=== PATIENT | male | born 1950 | race Caucasian/White ===

== ENCOUNTER 2019-03-29 20:10 | Inpatient (IN) | payer MEDICARE, OTHER ==
[~2019-03-29] VITALS: Ht 180.3 cm; Wt 93.4 kg
--- OUTSIDE RECORDS SUMMARY | ~2019-03-29 | XMS | Encounter Summary ---
Demographics + + + | Address | [address] | | | [place] [address] | + + + | Home Phone | | + + + | Preferred Language | Unknown | + + + | Marital Status | | + + + | Orthodox Affiliation | Unknown | + + + | Race | White | + + + | Ethnic Group | Not or | + + + Author + + + | Author | [facility] | + + + | Organization | [facility] | + + + | Address | Unknown | + + + | Phone | Unavailable | + + + Support + + + + + | Name | Relationship | Address | Phone | + + + + + | Ember Baca | ECON | [address] | | | | | [place] | | | | | [address] | | + + + + + Care Team Providers + +------+ + | Care Clothing Room Supervisor Name | Role | Phone | + +------+ + PCP | Unavailable | + +------+ + Encounter Details +--------+ + + + + | Date | Type | Department | Care Team | Description | +--------+ + + + + | 01/21/ | ED Progress | [facility] | Report, Emergency | ED Progress Note | | 2000 | | MEDICINE | Services | | | | Note-Transc | | | | | | ribed | | | | +--------+ + + + + Social History + +-------+ +--------+------+ | Tobacco Use | Types | Packs/Day | Years | Date | | | | | Used | | + +-------+ +--------+------+ | Never Assessed | | | | | + +-------+ +--------+------+ + + + | Sex Assigned at | Date Recorded | | | | + + + | Not on file | | + + + + + + + | Job Start Date | Occupation | Industry | + + + + | Not on file | Not on file | Not on file | + + + + + + + + | Travel History | Travel Start | Travel End | + + + + + + | No recent travel history available. | + + documented as of this encounter Plan of Treatment Not on filedocumented as of this encounter Visit Diagnoses Not on filedocumented in this encounter"
--- OUTSIDE RECORDS SUMMARY | ~2019-03-29 | XMS | Encounter Summary ---
Demographics + + + | Address | [address] | | | [place] [address] | + + + | Home Phone | | + + + | Preferred Language | Unknown | + + + | Marital Status | | + + + | Latter-Day Affiliation | Unknown | + + + | Race | White | + + + | Ethnic Group | Not or | + + + Author + + + | Author | [facility] | + + + | Organization | [facility] | + + + | Address | Unknown | + + + | Phone | Unavailable | + + + Support + + + + + | Name | Relationship | Address | Phone | + + + + + | Ember Baca | ECON | [address] | | | | | [place] | | | | | [address] | | + + + + + Care Team Providers + +------+ + | Care Line Person Name | Role | Phone | + +------+ + | Darci Bullock MD | PCP | | + +------+ + Encounter Details +--------+ + + + + | Date | Type | Department | Care Team | Description | +--------+ + + + + | 06/01/ | Documentati | [facility] | Clinic, Surgery | | | 2010 | on | Center at [facility] [address] | | | | | | [address] | | | | | | Mailcode: Center | | | | | | [facility] | | | | | | Healing, [address] | | | | | | [place], [place] | | | | | | [address] | | | | | | [phone] | | | +--------+ + + + [...]
--- OUTSIDE RECORDS SUMMARY | ~2019-03-29 | XMS | Encounter Summary ---
Demographics + + + | Address | [address] | | | [place] [address] | + + + | Home Phone | | + + + | Preferred Language | Unknown | + + + | Marital Status | | + + + | Bahai Affiliation | Unknown | + + + | Race | White | + + + | Ethnic Group | Not or | + + + Author + + + | Organization | Unknown | + + + | Address | Unknown | + + + | Phone | Unavailable | + + + Support + + + + + | Name | Relationship | Address | Phone | + + + + + | Ember Baca | ECON | [address] | | | | | [place] | | | | | [address] | | + + + + + Care Team Providers + +------+ + | Care Anatomic Pathology Assistant Name | Role | Phone | + +------+ + PCP | Unavailable | + +------+ + Encounter Details +--------+ + + + + | Date | Type | Department | Care Team | Description | +--------+ + + + + | 02/07/ | Transcribed | | Dictation, Other | Transcribed | | 2001 | | | | | +--------+ + + [...] + + documented as of this encounter Progress Notes Interface, Operations Administrator In - 04/10/2006 3:14 AM [facility] [place] [address] [place], [place] [address] or February 07, 2001 Sammy Davis M.D. [address] [place] [id number] RE: ARASH BACA JR MR #: [id number] Dear Dr. Davis: I had the pleasure of seeing Mr. Baca as a discharge followup appointment after his recurrent transient ischemic events on January 21, 2001. He is neurologically stable and has not had any acute neurological spells since his discharge from the [facility]. As you are aware, Mr. Baca is a 50-year-old gentleman with no significant vascular effect, except for hyperlipidemia who presented to the Emergency Department on January 21, 2001, with 3 acute episodes of right-sided numbness and weakness. The most episodes lasted from a few minutes to 30 minutes, and one of the episodes was associated with some language difficulty. He was evaluated in the Emergency Unit here and was kept overnight in the Observation Unit, and an MRI and MRA was done and was then discharged the next day. An MRI and an MRA was done which did not reveal any evidence of an acute ischemic stroke, and an MRA of the brain as well as carotid did not reveal any significant focal stenosis. He was discharged, and his discharge medications include putting him on an aspirin 1 tablet once a day. He has been regularly taking aspirin and has not had any acute neurological spells in the interim. In the interim period, he has had a 2-D echocardiogram which was done in [place] on January 26, 2001, and which did not reveal any cardiac source of emboli. He also had hypercoagulable workup done in the form of homocystine, anticardiolipin antibody, lupus anticoagulant, protein C, protein S, resistance to activated protein C, and antithrombin III, all of which were negative. Thus, most likely the etiology of his recurrent transient ischemic events might be small vessel disease, probably in view of his history of some hyperlipidemia and history of smoking. He now presents for a followup appointment and has been doing fine. His medications include aspirin, Pepcid, and Lipitor. On examination, he is hemodynamically stable. Heart: Regular rate and rhythm. Neurological examination reveals him to be awake and alert, and oriented to time, place, and person. Language is intact. There is no extinction to double simultaneous stimulus. Visual calles are full. Extraocular movements are intact. Pupils are reactive without any afferent pupillary defect. There is no facial weakness noted. Facial sensations are symmetric. Tongue is midline. Motor examination does not show any drift with power of 5/5 in all 4 extremities. Sensory examination is symmetric to touch. Jrqeug-oe-bnjo coordination is intact. Gait is without any ataxia. IMPRESSION: Mr. Baca presents for a followup appointment after 3 acute episodes of recurrent right-sided numbness and weakness. His workup in the form of cardio is negative for any cardioembolic source and a large vessel stenosis and hypercoagulable workup. Thus, his etiological scope was most likely small vessel disease, and we recommended that he continue taking 1 tablet of aspirin once a day. At the same time, he was explained about healthy lifestyle issues including diet and exercise and the harmful effects of smoking. He understands the healthy lifestyle issues. Other differential besides vascular could be migraine because he does have some nonspecific headache, but he is not exactly a headache person and hence it would be a diagnosis exclusion. We doubt it to be seizure because he was completely alert and oriented as to what is going on. Thus, his acute spells were most likely vascular in nature. At the present time, we recommended he continue taking 1 tablet of aspirin a day, and there is no need to see us; but if you have any questions, please feel free to give us a call. Sincerely, Donnie Valladares M.D. ALEXANDRA / JULY [id number] / [id number] / [id number] / [id number] signed by Interface, Operations Administrator In at 04/10/2006 3:14 AM PDTdocume nted in this encounter Plan of Treatment Not on filedocumented as of this encounter Visit Diagnoses Not on filedocumented in this encounter"
--- OUTSIDE RECORDS SUMMARY | ~2019-03-29 | XMS | Encounter Summary ---
Demographics + + + | Address | [address] | | | [place] [address] | + + + | Home Phone | | + + + | Preferred Language | Unknown | + + + | Marital Status | | + + + | Buddhism Affiliation | Unknown | + + + | Race | White | + + + | Ethnic Group | Not or | + + + Author + + + | Author | [facility] | + + + | Organization | [facility] | + + + | Address | Unknown | + + + | Phone | Unavailable | + + + Support + + + + + | Name | Relationship | Address | Phone | + + + + + | Ember Baca | ECON | [address] | | | | | [place] | | | | | [address] | | + + + + + Care Team Providers + +------+ + | Care Administrative Library Assistant Name | Role | Phone | + +------+ + PCP | Unavailable | + +------+ + Encounter Details +--------+ + + + + | Date | Type | Department | Care Team | Description | +--------+ + + + + | 01/21/ | Discharge | [facility] | Summary, Ed | D/C Summary ODDS | | 2001 | Summary-Tra | MEDICINE | Observation Unit | | | | nscribed | | | | +--------+ + + [...] + + documented as of this encounter Discharge Summaries Interface, Church Official In - 04/15/2006 1:[address] [phone] [facility] EMERGENCY DEPARTMENT OBSERVATION UNIT SUMMARY Med Rec No: [id number] Obs Unit Admission Date: 01/20/2001 Name: Arash Baca Jr Discharge / Hospital Admission Date: 01/21/2001 / 01/21/2001 PRIMARY CARE PHYSICIAN: Not dictated. ED OBS UNIT PHYSICIAN: Tevin Vázquez M.D. OBS UNIT INSTRUCTOR: Diana Esteves PRINCIPAL FINAL DIAGNOSIS: Transient ischemic attack. ADDITIONAL DIAGNOSES: Hypercholesterolemia. PRINCIPAL PROCEDURE: Serial neurologic exams. ADDITIONAL PROCEDURES: 1. Head CT. 2. MRA brain. 3. Chemistry. 4. CBC. 5. PT/PTT. 6. Neurology consult. 7. Orbital x-rays. 8. 12-lead EKG. REASON FOR OBS UNIT ADMISSION: This is a 50-year-old male who had new onset of intermittent right-sided weakness, slurred speech, difficulty with memory. Symptoms had resolved with patient presentation to [facility] Emergency Department. The patient was apparently a transfer from [facility], where he had had a head CT done which was negative. Carotid ultrasound was negative. At [facility] the patient was with stable vital signs. He was neurologically intact. EKG was without signs of ischemic changes. CBC and chemistry panel was noncontributory. Coags were normal. Neurology was consulted and recommendation was for patient to go for brain MRA in the a.m. The patient was admitted to the Observation Unit for serial neurological exams and for brain MRA in the morning. OBS UNIT COURSE: The patient did well in the Observation Unit. He was without any recurrence of neurologic symptoms. He was neurologically intact. Vital signs were stable. Brain MRA was negative, per Dr. Granger. Neurology was in to see the patient. The decision was made to arrange for an echocardiogram on an outpatient basis to evaluate for possible thrombus and/or valvular disease. He is to follow up in the Stroke Clinic in two weeks. The patient will be started on aspirin every day. It is felt the patient is stable for discharge and follow up in outpatient. PHYSICAL EXAMINATION: HEENT: Head is normocephalic, eyes are clear. Oropharynx negative, no jugular venous distention noted. Trache is midline, neck supple, nontender, no adenopathy noted. CARDIOVASCULAR: S1, S2, regular rate and rhythm. No murmurs, gallops or rubs. CHEST: Lung clear to auscultation. Respirations are even and unlabored. ABDOMEN: Soft, bowel sounds present, no masses or organomegaly noted. Abdomen is nontender. EXTREMITIES: No peripheral edema noted, no varicosities. Radial pulses 2+ bilaterally, pedal pulses 2+ bilaterally. Extremities are warm, pink and movable. Capillary refill is less than 2 seconds. NEUROLOGIC: The patient is awake, alert and oriented x 4. Pupils were equal, round and reactive to light and accommodation. Cranial nerves II-XII are intact. Cerebellar exam, including alternating hands, is normal. The patient is with steady gait. Upper and lower extremities are strong and equal. Brachial deep tendon reflexes 1+ bilaterally. Patellar deep tendon reflexes 1+ bilaterally. Sensation is grossly normal. Romberg exam is normal. DIAGNOSTICS: Chemistry is normal. CBC is normal. PT/PTT is normal. Head CT at [facility] was negative. Carotid ultrasounds were negative done at [facility]. 12-lead EKG is without ischemic changes. Brain MRA was negative per Dr. Granger. 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 They were negative for foreign body. CONDITION ON DISCHARGE / HOSPITAL ADMISSION: Stable. DISCHARGE MEDICATION(S): The patient will take aspirin 1 tablet q. day. DISCHARGE INSTRUCTION(S): 1. The patient is to call the cardiology laboratory to schedule a stress echocardiogram on Monday. He was given the phone number. An order was placed for an echocardiogram. 2. The patient is to return to the emergency department immediately for recurrence of symptoms, otherwise he is to follow up at the Stroke Clinic in two weeks. DISCHARGE DISPOSITION: Home. I have reviewed and made any necessary revision to the above-transcribed emergency department record. Please see my supplemental note for documentation of my verdugo findings and my participation in the verdugo components of this patient's care. Diana Esteves M.D. DW/ja2 P [id number] signed by Interface, Church Official In at 04/15/2006 1:11 AM PDTdocume nted in this encounter Plan of Treatment Not on filedocumented as of this encounter Visit Diagnoses Not on filedocumented in this encounter"
--- OUTSIDE RECORDS SUMMARY | ~2019-03-29 | XMS | Encounter Summary ---
Demographics + + + | Address | [address] | | | [place] [address] | + + + | Home Phone | | + + + | Preferred Language | Unknown | + + + | Marital Status | | + + + | Amish Affiliation | Unknown | + + + | Race | White | + + + | Ethnic Group | Not or | + + + Author + + + | Author | [facility] | + + + | Organization | [facility] | + + + | Address | Unknown | + + + | Phone | Unavailable | + + + Support + + + + + | Name | Relationship | Address | Phone | + + + + + | Ember Baca | ECON | [address] | | | | | [place] | | | | | [address] | | + + + + + Care Team Providers + +------+ + | Care Forensic Examiner Name | Role | Phone | + [...] as of this encounter Discharge Summaries Interface, Registered Medical Assistant In - 04/15/2006 1:[address] [phone] [facility] EMERGENCY DEPARTMENT OBSERVATION UNIT SUMMARY Med Rec [...] Symptoms had resolved with patient presentation to [facility] Emergency Department. The patient was apparently a transfer from [place], where he had had a head CT done which was negative. Carotid ultrasound was negative. At [facility] the patient was with stable vital signs. [...] normal. PT/PTT is normal. Head CT at [place] was negative. Carotid ultrasounds were negative done at [place]. 12-lead EKG is without ischemic changes. Brain MRA was negative per Dr. Granger. 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 They were negative for foreign body. CONDITION [...] patient's care. Diana Esteves M.D. DW/ja2 P [id number] signed by Interface, Registered Medical Assistant In at 04/15/2006 1:11 AM PDTdocume nted in this encounter Plan of Treatment Not on filedocumented as of this encounter Visit Diagnoses Not on filedocumented in this encounter"
--- OUTSIDE RECORDS SUMMARY | ~2019-03-29 | XMS | Clinical Summary ---
Demographics + + + | Address | [address] | | | [place] [address] | + + + | Home Phone | | + + + | Preferred Language | Unknown | + + + | Marital Status | | + + + | Protestant Affiliation | Unknown | + + + | Race | White | + + + | Ethnic Group | Not or | + + + Author + + + | Author | [facility] | + + + | Organization | [facility] | + + + | Address | Unknown | + + + | Phone | Unavailable | + + + Support + + + + + | Name | Relationship | Address | Phone | + + + + + | Ember Baca | ECON | [address] | | | | | [place] | | | | | [address] | | + + + + + Care Team Providers + +------+ + | Care Beauty Director Name | Role | Phone | + +------+ + | Darci Bullock MD | PCP | | + +------+ + Source Comments CODEY is fully live on both [facility] and [facility] Allergies + + + + + + | Active Allergy | Reactions | Severity | Noted | Comments | | | | | Date | | + + + + + + | Celecoxib | | | 07/06/19 | TIA's | | | | | 12 | | + + + + + + | Cephalexin | | | 07/06/19 | Nauseated | | | | | 12 | | + + + + + + Medications + + + +---------+------+------+-------+ | Medication | Sig | Dispensed | Refills | Star | End | Statu | | | | | | t | Date | s | | | | | | Date | | | + + + +---------+------+------+-------+ | omeprazole 40 mg | Take 40 mg by mouth | | 0 | | | Activ | | Oral Capsule, | once daily. | | | | | e | | Delayed | | | | | | | | Release(E.C.) | | | | | | | + + + +---------+------+------+-------+ | OM-3/DHA/EPA/FISH | Take by mouth. | | 0 | | | Activ | | OIL/VIT D3 (FISH | | | | | | e | | OIL-VIT D3 ORAL) | | | | | | | + + + +---------+------+------+-------+ | TAMSULOSIN HCL | Take by mouth. | | 0 | | | Activ | | (TAMSULOSIN ORAL) | | | | | | e | + + + +---------+------+------+-------+ | ASPIRIN (ASPIR-81 | Take by mouth. | | 0 | | | Activ | | ORAL) | | | | | | e | + + + +---------+------+------+-------+ | ATORVASTATIN | Take by mouth. | | 0 | | | Activ | | CALCIUM (LIPITOR | | | | | | e | | ORAL) | | | | | | | + + + +---------+------+------+-------+ | MULTIVITAMIN | Take by mouth. | | 0 | | | Activ | | W-MINERALS/LUTEIN | | | | | | e | | (CENTRUM SILVER | | | | | | | | ORAL) | | | | | | | + + + +---------+------+------+-------+ | ACETAMINOPHEN WITH | Take 1 Tab by mouth | | 0 | | | Activ | | CODEINE | every six hours as | | | | | e | | (ACETAMINOPHEN-CODEI | needed. | | | | | | | NE) 300-15 mg Oral | | | | | | | | Tablet | | | | | | | + + + +---------+------+------+-------+ | | Take 4 g by mouth | | 0 | | | Activ | | cholestyramine-aspar | once daily. Mix | | | | | e | | tame 4 gram Oral | powder with water or | | | | | | | Packet | other fluid prior | | | | | | | | to administration; | | | | | | | | not to be taken in | | | | | | | | dry form. Suspension | | | | | | | | should not be | | | | | | | | sipped or held in | | | | | | | | mouth for prolonged | | | | | | | | periods. | | | | | | + + + +---------+------+------+-------+ Active Problems No known active problems Family History + + + + + | Medical History | Relation | Name | Comments | + + + + + | Cancer | Father | | colon cancer in late 70's | + + + + + | Cancer | Paternal | Buster, | colon cancer | | | Uncle | Audi | | + + + + + + + +--------+ + | Relation | Name | Status | Comments | + + +--------+ + | Father | | | | + + +--------+ + | Paternal Uncle | Buster, | | | | | Audi | | | + + +--------+ + Social History + + + +--------+------+ | Tobacco Use | Types | Packs/Day | Years | Date | | | | | Used | | + + + +--------+------+ | Current Every Day | Cigarettes | 0.5 | 8 | | | Smoker | | | | | + + + +--------+------+ + +---+---+---+ | Smokeless Tobacco: | | | | | Former User | | | | + +---+---+---+ + + | Tobacco Cessation: Ready to Quit: Yes; Counseling Given: Yes | + + + + +---------+ + | Alcohol Use | Drinks/Week | oz/Week | Comments | + + +---------+ + | Yes | | | 1 drink a day | + + +---------+ + + + + | Sex Assigned at [...] recent travel history available. | + + Last Filed Vital Signs + + + + + | Vital Sign | Reading | Time Taken | Comments | + + + + + | Blood Pressure | 137/75 | 07/06/2011 12:47 PM | | | | | PST | | + + + + + | Pulse | 76 | 07/06/2011 12:47 PM | | | | | PST | | + + + + + | Temperature | 37.1 C (98.8 F) | 07/06/2011 12:47 PM | | | | | PST | | + + + + + | Respiratory Rate | 14 | 07/06/2011 12:47 PM | | | | | PST | | + + + + + | Oxygen Saturation | - | - | | + + + + + | Inhaled Oxygen | - | - | | | Concentration | | | | + + + + + | Weight | 102.4 kg (225 lb | 07/06/2011 12:47 PM | | | | 11.2 oz) | PST | | + + + + + | Height | 180.3 cm (5' 11") | 07/06/2011 12:47 PM | | | | | PST | | + + + + + | Body Mass Index | 31.48 | 07/06/2011 12:47 PM | | | | | PST | | + + + + + Plan of Treatment + + + + + | Health Maintenance | Due Date | Last Done | Comments | + + + + + | Pneumococcal | | | | | vaccination (1 of 2 | 5 | | | | - PCV13) | | | | + + + + + | Influenza (Flu) | | | | | vaccination (#1) | 9 | | | + + + + + Results Not on filefrom Last 3 Months Insurance + +--------+ +--------+ + +------+ | Payer | Benefi | Subscriber | Effect | Phone | Address | Type | | | t Plan | ID | lynne | | | | | | / | | Dates | | | | | | Group | | | | | | + +--------+ +--------+ + +------+ | [employer] | MODA | [phone] | | [phone] | [address] | PPO | | | [place] | | [address] | [phone] | | | | [place] | | esent | | [place], | | | | [place] | | | | [place] [address] | | + +--------+ +--------+ + +------+ + +--------+ +--------+ + + | Guarantor Name | Accoun | Relation to | Date | Phone | Billing Address | | | t Type | Patient | of | | | | | | | | | | + +--------+ +--------+ + + | Arash Baca Jr. | Person | Self [birth year] | [address] | | | al/Fam | | 1950 | [phone] | [place] | | | [place] | | | [address] (Home) | [address] | + +--------+ +--------+ + +
--- OUTSIDE RECORDS SUMMARY | ~2019-03-29 | XMS | Clinical Summary ---
Demographics + + + | Address | [address] | | | [place] [address] | + + + | Home Phone | | + + + | Preferred Language | Unknown | + + + | Marital Status | | + + + | Taoism Affiliation | Unknown | + + + | Race | Unknown | + + + | Ethnic Group | Unknown | + + + Author + + + | Author | [facility] | | | and [place] | + + + | Organization | [facility] | | | and [place] | + + + | Address | Unknown | + + + | Phone | Unavailable | + + + Support + + + + + | Name | Relationship | Address | Phone | + + + + + | Ember Baca | ECON | [address] | | | | | [place], | | | | | [place] [address] | | + + + + + Care Team Providers + +------+ + | Care Outside Operator Name | Role | Phone | + +------+ + | Deandra Hoyos | PCP | | | PA | | | + +------+ + Allergies + + + + + + | Active Allergy | Reactions | Severity | Noted | Comments | | | | | Date | | + + + + + + | Bacitracin-Neomycin- | Other (See Comments) | Low | | "Infection get | | Polymyxin | | | | worse" | + + + + + + | Celecoxib | Other (See Comments) | Medium | | AKA - Celebrex | | | | | | potentially caused a | | | | | | TIA | + + + + + + | Cephalexin | Other (See Comments) | Low | | Body aches | + + + + + + | Ibuprofen | Other (See Comments) | Low | 10/25/20 | Too hard on | | | | | 16 | stomach | + + + + + + Medications + + + +---------+------+------+-------+ | Medication | Sig | Dispensed | Refills | Star | End | Statu | | | | | | t | Date | s | | | | | | Date | | | + + + +---------+------+------+-------+ | tamsulosin | Take 0.4 mg by mouth | | 0 | 09/1 | | Activ | | (FLOMAX) 0.4 mg CAPS | Daily. | | | 3/20 | | e | | | | | | 12 | | | + + + +---------+------+------+-------+ | aspirin 81 mg EC | Take 81 mg by mouth | | 0 | 09/1 | | Activ | | tablet | Daily. | | | 3/20 | | e | | | | | | 12 | | | + + + +---------+------+------+-------+ | cholestyramine | Mix 1 scoop in | | 0 | 09/1 | | Activ | | (QUESTRAN) 4 GM/DOSE | liquid and drink | | | 3/20 | | e | | powder | once daily | | | 12 | | | + + + +---------+------+------+-------+ | atorvaSTATin | Take 10 mg by mouth | | 0 | 09/1 | | Activ | | (LIPITOR) 10 mg | nightly. | | | 3/20 | | e | | tablet | | | | 12 | | | + + + +---------+------+------+-------+ | Multiple | Take 1 tablet by | | 0 | 09/1 | | Activ | | Vitamins-Minerals | mouth once daily | | | 3/20 | | e | | (CENTRUM SILVER) | | | | 12 | | | | TABS | | | | | | | + + + +---------+------+------+-------+ | loperamide | Take 2 mg by mouth 4 | | 0 | | | Activ | | (IMODIUM) 2 mg | times daily as | | | | | e | | capsule | needed for Diarrhea. | | | | | | + + + +---------+------+------+-------+ | mesalamine | Take 1,200 mg by | | 0 | | | Activ | | (LIALDA) 1.2 G EC | mouth daily (with | | | | | e | | tablet | breakfast). | | | | | | + + + +---------+------+------+-------+ | Cholecalciferol | Take 4,000 Units by | | 0 | | | Activ | | (VITAMIN D-3) 2000 | mouth Daily. | | | | | e | | units CAPS | | | | | | | + + + +---------+------+------+-------+ | esomeprazole | Take 20 mg by mouth | | 0 | | | Activ | | (NEXIUM) 20 mg | every morning | | | | | e | | capsule | (before breakfast). | | | | | | + + + +---------+------+------+-------+ Active Problems + + + | Problem | Noted Date | + + + | Impaired mobility | 06/28/2016 | + + + | Nicotine addiction | 05/18/2016 | + + + | Pseudoarthrosis of cervical spine | 04/19/2016 | + + + | Foraminal stenosis of cervical region | 02/17/2016 | + + + | DDD (degenerative disc disease), cervical | 02/17/2016 | + + + | Cervical radiculopathy | 02/17/2016 | + + + | S/P cervical spinal fusion | 02/17/2016 | + + + | HYPERTROPHY OF NASAL TURBINATES | 08/08/2011 | + + + | GASTROESOPHAGEAL REFLUX DISEASE | | + + + | IRRITABLE BOWEL SYNDROME | | + + + | ANAL FISSURE | | + + + | CROHN'S DISEASE | | + + + | NEOPLASM, MALIGNANT, COLON, FAMILY HX, FATHER | | + + + | HYPERLIPIDEMIA | | + + + | BENIGN PROSTATIC HYPERTROPHY, WITH URINARY OBSTRUCTION | | + + + | TOBACCO USER | | + + + | NONSPECIFIC ABNORMAL RESULTS LIVR FUNCTION STUDY | | + + + | VITAMIN D DEFICIENCY | | + + + | Nicotine dependence | | + + + Family History + + +------+ + | Medical History | Relation | Name | Comments | + + +------+ + | Alcohol abuse | Father | | | + + +------+ + | Colon cancer | Father | | | + + +------+ + | Arthritis | Mother | | OSTEOARTHROSIS | + + +------+ + | Hypertension | Mother | | | + + +------+ + | Stroke | Mother | | | + + +------+ + | Cancer | Paternal | | | | | Uncle | | | + + +------+ + + +------+ + + | Relation | Name | Status | Comments | + +------+ + + | Child | | Alive | | + +------+ + + | Father | | | COLON CANCER | | | | (Age | | | | | 80) | | + +------+ + + | Maternal Grandfather | | | | + +------+ + + | Maternal Grandmother | | | | + +------+ + + | Mother | | | | | | | (Age | | | | | 80) | | + +------+ + + | Paternal Grandfather | | | | + +------+ + + | Paternal Grandmother | | | | + +------+ + + | Paternal Uncle | | | | + +------+ + + | Paternal Uncle | | | | + +------+ + + Social History + + + +--------+ + | Tobacco Use | Types | Packs/Day | Years | Date | | | | | Used | | + + + +--------+ + | Former Smoker | Cigarettes | 0.5 | 5 | Quit: 04/22/2016 | + + + +--------+ + + +---+---+ + | Smokeless Tobacco: | | | Quit: | | Former User | | | 06/26/18 | | | | | 98 | + +---+---+ + + + +---------+ + | Alcohol Use | Drinks/We | oz/Week | Comments | | | ek | | | + + +---------+ + | Yes | 14 | 8.4 | Whisky | | | Shots of | | | | | liquor 0 | | | | | Standard | | | | | drinks | | | | | or | | | | | equivalen | | | | | t | | | + + +---------+ + + + [...] Filed Vital Signs + + + + | Vital Sign | Reading | Time Taken | + + + + | Blood Pressure | 144/84 | 09/27/20168 PDT | + + + + | Pulse | 88 | 09/27/20168 PDT | + + + + | Temperature | 36.5 C (97.7 F) | 06/29/2016 0746 PST | + + + + | Respiratory Rate | 16 | 08/02/2016 1424 PST | + + + + | Oxygen Saturation | 94% | 06/29/201646 PST | + + + + | Inhaled Oxygen | - | - | | Concentration | | | + + + + | Weight | 101.2 kg (223 lb) | 09/27/20161117 PDT | + + + + | Height | 180.3 cm (5' 11") | 09/27/20161117 PDT | + + + + | Body Mass Index | 31.1 | 09/27/20161117 PDT | + + + + Plan of Treatment + + + + + | Health Maintenance | Due Date | Last Done | Comments | + + + + + | Hepatitis C | | | | | Screening | 0 | | | + + + + + | Vaccine: | | | | | Dtap/Tdap/Td (1 - | 9 | | | | Tdap) | | | | + + + + + | AAA Screening | | | | | | 5 | | | + + + + + | Adult Annual | | | | | Wellness Visit | 5 | | | + + + + + | Vaccine: Influenza | | 02/13/2018, 01/31/2017, | | | (#1) | 9 | 02/19/2016, Additional history | | | | | exists | | + + + + + | Colorectal Cancer | | 07/22/2014, 08/22/2008 | | | Screening | 5 | | | | (Colonoscopy) | | | | + + + + + | Vaccine: | Completed | 01/31/2017, 08/18/2015, | | | Pneumococcal 65+ | | 03/23/2015 | | | Low/Medium Risk | | | | + + + + + Implants + +--------+--------+ +--------+--------+--------+ | Implanted | Type | Area | Manufacture | Device | Shelf | Model | | | | | r | | Expira | / | | | | | | Identi | tion | Serial | | | | | | fier | Date | / Lot | + +--------+--------+ +--------+--------+--------+ | Imp Spn Plt Ti Zevo 19mm 1lvl | Generi | N/A: | [employer]OR | | | [id number] | | - [id number]: Qty: 1 | c | Neck | DANEK - DIV | | | | | on 06/28/2016 by Kristofer Carroll | | | [employer] | | | | | MD Dalila | | | - SFDK | | | | + +--------+--------+ +--------+--------+--------+ | Algrft Spcr Cerv [id number] - | Graft | N/A: | [employer] - | | 09/07/ | [id number] | | [id number]: Qty: 1 on | | Spine | MEDT | | 2019 | 4 | | 06/28/2016 by Kristofer Carroll, | | [place] | | | | /[id number] | | | | [place] | | | | [address] | | | | | | | | /[id number] | | | | | | | | [id number] | + +--------+--------+ +--------+--------+--------+ | Allgrft Grftn Pls 1cc Aseptic | Graft | N/A: | [employer] - | | 03/10/ | [id number] | | - [id number]: Qty: | | Spine | MEDT | | 2018 | | | 1 on 06/28/2016 by Carly, | | Karlene | | | | /[id number] | | Kristofer Conner MD | | al | | | | 0-125 | | | | | | | | / | + +--------+--------+ +--------+--------+--------+ | Screw D-Thrd Slf-Drl 3.5x17mm | Screw | N/A: | [employer] | | | [id number] | | - [id number]: Qty: 4 | | Neck | DANEK - DIV | | | 7 / / | | on 06/28/2016 by Kristofer Carroll | | | [employer] | | | | | MD Dalila | | | - SFDK | | | | + +--------+--------+ +--------+--------+--------+ Results Not on filefrom Last 3 Months Insurance + +--------+ +--------+ +---------+--------+ | Payer | Benefi | Subscriber | Effect | Phone | Address | Type | | | t Plan | ID | lynne | | | | | | / | | Dates | | | | | | Group | | | | | | + +--------+ +--------+ +---------+--------+ | MEDICARE | MEDICA | [id number] | 01/25/20 | [phone] | | Medica | | | RE | | 15-Pre | 5 | | re | | | PART A | | sent | | | | | | AND B | | | | | | + +--------+ +--------+ +---------+--------+ | [employer] | [employer] | [id number] | 01/25/20 | [phone] | | Indemn | | | OF | | 15-Pre | 0 | | ity | | | [place] | | sent | | | | | | MDCR | | | | | | | | SUPPL | | | | | | + +--------+ +--------+ +---------+--------+ + +--------+ +--------+ + + | Guarantor Name | Accoun | Relation to | Date | Phone | Billing Address | | | t Type | Patient | of | | | | | | | | | | + +--------+ +--------+ + + | Arash Baca Jr. | Person | Self | [birth year] | [id number] | | | al/Fam | | 1950 | [phone] | [place], | | | [place] | | | [address] (Home) | [place] [address] | + +--------+ +--------+ + + Advance Directives Patient has advance care planning documents, and code status on file. For more information, please contact:[facility] and [place] [address] + + + + + | Code Status | Date | Date | Comments | | | Activated | Inactivated | | + + + + + | Full Code | 06/28/2016 | 06/29/2016 | | | | 15:07 | 13:47 | | + + + + +
--- OUTSIDE RECORDS SUMMARY | ~2019-03-29 | XMS | Encounter Summary ---
Demographics + + + | Address | [address] | | | [place] [address] | + + + | Home Phone | | + + + | Preferred Language | Unknown | + + + | Marital Status | | + + + | Buddhism Affiliation | Unknown | + + + | Race | White | + + + | Ethnic Group | Not or | + + + Author + + + | Author | [facility] | + + + | Organization | [facility] | + + + | Address | Unknown | + + + | Phone | Unavailable | + + + Support + + + + + | Name | Relationship | Address | Phone | + + + + + | Ember Baca | ECON | [address] | | | | | [place] | | | | | [address] | | + + + + + Care Team Providers + +------+ + | Care Garage Laborer Name | Role | Phone | + +------+ + | Darci Bullock MD | PCP | | + +------+ + Reason for Visit + + + | Reason | Comments | + + + | New patient | | | consultation | | + + + | Fistula | left supralevator fistula | + + + Consultation (Routine) +--------+ + + + + + | Status | Reason | Specialty | Diagnoses / | Referred By | Referred To | | | | | Procedures | Contact | Contact | +--------+ + + + + + | Closed | Specialty | Surgery | Diagnoses | Non-[facility] | Kelsea Ontiveros, | | | Services | | Fistula | Epic Dept | [address] | | | Required | | Crohn's | | [address] | | | | | Procedures | | Aly[facility]ont | | | | | CONSULT TO | | [place], [place] | | | | | [place] | | [address] | | | | | SURGERY | | Phone: | | | | | | | [phone] | | | | | | | Fax: | | | | | | | [phone] | +--------+ + + + + + Encounter Details +--------+---------+ + + + | Date | Type | Department | Care Team | Description | +--------+---------+ + + + | 07/06/ | Office | Digestive Health | Kelsea Ontiveros MD | Anal fistula | | 2011 | Visit | Center at [address] | [address] | (Primary Dx) | | | | [address] | Alyson Dumont [place], | | | | | Mailcode: [place] | [place] [address] | | | | | [facility] and | [phone] | | | | | [facility] | | | | | | [place], [place] | | | | | | [address] | | | | | | [phone] | | | +--------+---------+ + + + Social History + + + +--------+------+ [...] + + documented as of this encounter Last Filed Vital Signs + + + [...] | | + + + + + documented in this encounter Patient Instructions Patient Instructions Kelsea Ontiveros MD - 07/06/2011 1:06 PM PSTCome back if you develop anal p ain or drainage. Getting ready to quit? Here's how to get started. o Most smokers know that quitting improves your health. But did you know that when you fabby t, you will likely: Reduce your chances of getting sick from smoking. Have more energy and breathe easier Heal more easily from surgery, injuries, and infections. Reduce your chance of a heart attack, stroke, or cancer. Reduce your chances of a second heart attack (if you've already had one). Give your baby a healthier start in life if you are . Help the people (and pets!) you live with be healthier. Breathing in smoke can cause a sthma and other health problems, especially in children. Have more money to spend. Stop the hassles about finding a place to smoke and worrying about running out of cigare ttes. o Most smokers have seriously tried to quit, usually more than once. But, when you cut back or stop smoking, withdrawal symptoms from nicotine can make you feel not your normal ned f. Quitters can feel anxious, restless, sad or depressed, frustrated, or even angry. With drawal can make you hungrier and make it harder to sleep and think clearly. Most withdrawal symptoms go away after 3-6 weeks, although cravings can last longer. o For some smokers, quitting means first figuring out why you want to quit and then finding the best ways to overcome withdrawal. Others may just decide to quit right now and want to know what to do. The experts recommend the Four Show Low to Quitting. o Call the [place] Tobacco Quitline at: 2-579-QUIT NOW or visit the website www.[facility] [employer].org. A Quitline specialist will talk to you and help you decide the best way to quit. Th e Quitline may also be able to send you FREE medications. o For help online: Centers for Disease Control website at www.cdc.gov/tobacco or [facility] [place] website for live on-line assistance for smokers at www.smokefree.gov Four Show Low to Quitting These four keys can help withdrawal and help you successfully quit. 1. Set a specific date to quit. 2. Take the stop smoking medication your doctor recommends. 3. Get help and support from friends, family, and your health professional. 4. Learn how to stay quit. Four Show Low to Quitting Rollins 1: SET A QUIT DATE Choose a day that works for you. What's better: Monday morning? Monday morning? Sp ecial days like anniversaries or birth? Maybe today is the day! Consider giving yourself a few days to a couple of weeks to get ready. Try changing bran ds and cutting back. If you still smoke in your car or house, think about only smoking outsi de until your quit day. Be prepared for your quit day: o Be determined to succeed & stay busy! o Plan to spend time with non-smokers. o Collect a few things to have with you to help with urges. Quitters have tried sugarless g um and mints, red hot candy, water bottle, carrot sticks, a list of the reasons for quitting , pictures of family members and pets. Choose (or invent!) what you think will help. The day before your quit day, get rid of all your cigarettes, lighters and ashtrays. Bala an your car and your home to help get ready. Rollins 2: TAKE A MEDICATION o Take the medication your doctor recommends. Stop smoking medications can double or tripl e your chances of success. o Medications can help you with physical, nicotine withdrawal symptoms so you can feel more like your normal self while learning not to smoke. IMPORTANT: Be sure to use enough medication and use it as long as recommended. People who smoke a lot sometimes use two medications together. But, some quitters stop using the medica tion as soon as they feel better. This can be too soon! Your doctor can help you decide. Rollins 3: GET HELP AND SUPPORT o Studies show that getting support helps increase your chances of quitting. o Ask your friends and family for help, but be specific. Know that some people may be helpf ul and others may not. You want to make quitting easier, not more stressful! o Find other quitters who can help. Try joining a class, getting individual coaching, or ch ecking out internet quit sites. o Call the [place] Tobacco Quitline at 3-711-Teot Now. Rollins 4: LEARN HOW TO STAY QUIT o Always take it one day at a time. o Try avoiding smokers and smoking areas for the first weeks. Seeing and smelling smoke can be a big trigger and cause you to start up again. o Stick with it even if you slip up. o Remind yourself (even if you don't feel that way) that you will feel better and quitting will get easier. o Help stay motivated by rewarding yourself. Commonly Asked Questions Why do I get really uncomfortable when I try to quit? These are normal feelings. Nicotine is a drug in tobacco that affects your mind and body by causing chemical changes in your brain. Most smokers know that smoking (nicotine) can hel p you feel relaxed and calm and also keep you alert and help you concentrate. It can also re duce your appetite and delay eating. Your body gets used to having lots of nicotine over yea rs of smoking. When you suddenly cut way down or stop, your body reacts. Withdrawal starts within a couple of hours after your last cigarette. What can I expect from withdrawal? When smokers quit they often feel irritated, anxious, tired, sad or down or have a hard ti me thinking clearly. Many can't sleep as well, feel hungrier, and many gain some weight. No wonder it is hard to quit! Is there a way to quit without withdrawal? Most smokers have withdrawal when they stop. Medications help, but there isn't a painless way to quit. Some smokers have said: You just have to make up your mind to stop, or Just get past the physical craving and you'll be alright, or Don't beat yourself up i f quitting is harder for you than for your friends And, all are right! It can be hard to keep your mental attitude positive about quitting when you are feeling withdrawal. Following the Four Show Low to Quitting can help smokers make withdrawal easier and be successf ul. I am trying to get away from nicotine! Why would I use nicotine patches, gum, or the lozen ge? This is a common question. Nicotine is an addictive drug. But it isn't nicotine that cause s cancer and the other serious diseases. It is all the other chemicals in tobacco and in the smoke that cause so much harm. When you follow a program with the patch, gum, or lozenge y ou gradually decrease the amount of nicotine you are getting. Your body has more time to adj ust and you get rid of all of the other chemicals from the tobacco and the smoke that cause harm. You can also try non-nicotine medications for quitting including bupropion (Zyban/Well butrin) or varenicline (Chantix). Can I really quit? YES! Quitting takes commitment and patience> it also takes staying with it even if it is hard to do. Think of past quit attempts as practice, not failures. Forty years ago more than 42% of Americans smoked. Now there are more ex-smokers than smokers. You can quit if you ar e willing to stick with it! Developed by: [facility] Smoking Cessation Center [email or web address] 02/27/07 documented in this encounter Progress Notes Kelsea Ontiveros MD - 07/06/2011 12:49 PM PST COLON AND RECTAL SURGERY History and Physical New Patient Assessment: 61 y.o. male with elevated cholesterol, TIA's, and a hiatal hernia left [id number] drainage of left perirectal abscess (05/2004) drainage of left supralevator abscess, posterior midline fistulectomy/seton placement (10/07/04) currently asymptomatic, no external openings colonoscopy to cecum with excellent prep (05/10/11) 10 mm ascending colon polyp (bx: normal mucosa) random biopsies (normal mucosa) Plan: Follow up with me prn. I provided some tobacco counseling. Chief Complaint: 61 y.o. male with intermittent foul-smelling perianal drainage. History of Present Illness: In 2003, a perirectal abscess was found. That was drained in [place], [place]. On 10/07/04, Dr. Eber Baxter performed an anal exam under anesthesia. He found a left internal opening 4 cm above the dentate line. That connected to a posterior mi dline internal opening. The overlying mucosa was incised. That posterior midline internal o pening communicated with a posterior midline external opening. A fistulectomy was performed , and a seton was placed. A dex was placed into the left supralevator abscess cavity. He has not seen Dr. Baxter since then. He has intermittent (monthly) foul-smelling liquid perianal drainage. Each episode lasts a few days. No alleviating or exacerbating factors. Currently, he is not having any anal p ain or drainage. No fevers, chills, or urinary retention. 4-7 BM's a day. Marginal fecal continence; he has to run to the bathroom. Recently, that has improved. On 05/10/11, he had a colonoscopy to cecum with excellent prep. All biopsies were negativ e. He has no evidence of Crohn's. Capsule endoscopy (in May,) was negative per the patient. He was told he had no evidence of Crohn's disease. He was referred to me for further evaluation of his Crohn's disease. Past Medical History Diagnosis Date Anal fistula Elevated cholesterol History of TIAs last in 2004 Esophageal hiatal hernia Past Surgical History Procedure Date Colonoscopy to cecum with excellent prep 05/10/11 10 mm ascending colon polyp (bx: normal mucosa), random biopsies (normal mucosa) Drainage of left perirectal abscess 05/2004 [place], [place] Drainage of left supralevator abscess, posterior midilne fistulectomy/seton placement posterior midline external opening, posterior midline internal opening, left rectal inter nal opening 4 cm above the dentate line, Dr. Baxter, [place], [place] Capsule endoscopy 05/2011 negative per patient Cholecystectomy, laparoscopic ~2003 or 2005 [place], [place] Allergies Allergen Reactions Celebrex (Celecoxib) TIA's Keflex (Cephalexin) Nauseated Current Outpatient Prescriptions Medication Sig ACETAMINOPHEN WITH CODEINE (ACETAMINOPHEN-CODEINE) 300-15 mg Oral Tablet Take 1 Tab by mouth every six hours as needed. ASPIRIN (ASPIR-81 ORAL) Take by mouth. ATORVASTATIN CALCIUM (LIPITOR ORAL) Take by mouth. cholestyramine-aspartame 4 gram Oral Packet Take 4 g by mouth once daily. Mix powder wi th water or other fluid prior to administration; not to be taken in dry form. Suspension skyla uld not be sipped or held in mouth for prolonged periods. MULTIVITAMIN W-MINERALS/LUTEIN (CENTRUM SILVER ORAL) Take by mouth. OM-3/DHA/EPA/FISH OIL/VIT D3 (FISH OIL-VIT D3 ORAL) Take by mouth. omeprazole 40 mg Oral Capsule, Delayed Release(E.C.) Take 40 mg by mouth once daily. TAMSULOSIN HCL (TAMSULOSIN ORAL) Take by mouth. 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 Constant bilateral dull lower abdominal pain resolved 2-3 months ago. See HPI. All other systems reviewed and are negative. Physical exam: BP 137/75 | Pulse 76 | Temp (Src) 37.1 C (98.8 F) (Oral) | RR 14 | Ht 1 80.3 cm (5' 11") | Wt 102.377 kg (225 lb 11.2 oz) | BMI 31.48 kg/(m^2) General: well-developed, well-nourished male in NAD Mental Status: A&O x 4 Neurologic: moves all extremities well HEENT: anicteric sclera, EOMI, no facial sinus tenderness, oropharynx benign Neck: supple, no LAD, no thyromegaly Lungs: clear to auscultation bilaterally Heart: regular rate and rhythm Abd: soft, nontender, nondistended Back: no spinal or costovertebral tenderness Groins: no inguinal lymphadenopathy Vascular: 2+ femoral pulses Extremities: no calf tenderness, no clubbing/cyanosis/edema Perineum: no external openings, no setons Rectal: normal tone, no masses/abscesses, left posterior upper anal canal defect/induration but no fluctuance Anoscopy: clean left posterior upper anal canal ulcer, no inflammation With this New Referral patient, I spent 28 minutes of ysye-wh-wbsi time, of which more than half the time was spent in counseling. 12 minute document review documented in this encounte r Plan of Treatment Not on filedocumented as of this encounter Procedures + +--------+ + + + | Procedure Name | Priori | Date/Time | Associated Diagnosis | Comments | | | ty | | | | + +--------+ + + + | UT ANOSCOPY, DIAG | Routin | 08/11/2011 | Anal fistula | | | INCL SPEC COLLEC | e | 11:06 PM | | | | | | PST | | | + +--------+ + + + documented in this encounter Visit Diagnoses + + | Diagnosis | + + | Anal fistula - Primary | + + documented in this encounter
--- OUTSIDE RECORDS SUMMARY | ~2019-03-29 | XMS | Encounter Summary ---
Demographics + + + | Address | [address] | | | [place] [address] | + + + | Home Phone | | + + + | Preferred Language | Unknown | + + + | Marital Status | | + + + | Sabianist Affiliation | Unknown | + + + | Race | White | + + + | Ethnic Group | Not or | + + + Author + + + | Author | [facility] | + + + | Organization | [facility] | + + + | Address | Unknown | + + + | Phone | Unavailable | + + + Support + + + + + | Name | Relationship | Address | Phone | + + + + + | Ember Baca | ECON | [address] | | | | | [place] | | | | | [address] | | + + + + + Care Team Providers + +------+ + | Care Caustics Loader Name | Role | Phone | + +------+ + PCP | Unavailable | + +------+ + Encounter Details +--------+ + + + + | Date | Type | Department | Care Team | Description | +--------+ + + + + | 05/17/ | Abstract | Digestive Health | Ana M | | | 2010 | | [place] at [facility] [address] | MD [address] | | | | | [address] | [address] | | | | | Mailcode: Center | [place], [place] | | | | | [facility] Health and | [address] | | | | | [facility], [facility] 2 | [phone] | | | | | [place], [place] | | | | | | [address] | | | | | | [phone] | | | +--------+ + + + [...]
--- OUTSIDE RECORDS SUMMARY | ~2019-03-29 | XMS | Encounter Summary ---
Demographics + + + | Address | [address] | | | [place] [address] | + + + | Home Phone | | + + + | Preferred Language | Unknown | + + + | Marital Status | | + + + | Caodaism Affiliation | Unknown | + + + | Race | White | + + + | Ethnic Group | Not or | + + + Author + + + | Author | [facility] | + + + | Organization | [facility] | + + + | Address | Unknown | + + + | Phone | Unavailable | + + + Support + + + + + | Name | Relationship | Address | Phone | + + + + + | Ember Baca | ECON | [address] | | | | | [place] | | | | | [address] | | + + + + + Care Team Providers + +------+ + | Care Environmental Law Professor Name | Role | Phone | + +------+ + | Darci Bullock MD | PCP | | + +------+ + Encounter Details +--------+ + + + + | Date | Type | Department | Care Team | Description | +--------+ + + + + | 06/01/ | Documentati | Digestive Health | Clinic, Surgery | | | 2010 | on | Center at [facility] [address] | | | | | | [address] | | | | | | Mailcode: Center | | | | | | for Health and | | | | | | Healing, Building [address] | | | | | | [place], [place] | | | | | | [address] | | | | | | [phone] | | | +--------+ + + + [...]
--- OUTSIDE RECORDS SUMMARY | ~2019-03-29 | XMS | Encounter Summary ---
Demographics + + + | Address | [address] | | | [place] [address] | + + + | Home Phone | | + + + | Preferred Language | Unknown | + + + | Marital Status | | + + + | Church Affiliation | Unknown | + + + | Race | White | + + + | Ethnic Group | Not or | + + + Author + + + | Author | [facility] | + + + | Organization | [facility] | + + + | Address | Unknown | + + + | Phone | Unavailable | + + + Support + + + + + | Name | Relationship | Address | Phone | + + + + + | Ember Baca | ECON | [address] | | | | | [place] | | | | | [address] | | + + + + + Care Team Providers + +------+ + | Care Gas Systems Worker Name | Role | Phone | + +------+ + PCP | Unavailable | + +------+ + Encounter Details +--------+ + + + + | Date | Type | Department | Care Team | Description | +--------+ + + + + | 05/17/ | Abstract | Digestive Health | Ana M | | | 2010 | | [place] at [facility] [address] | [address] | | | | | [address] | [address] | | | | | Mailcode: Center | [place], [place] | | | | | [facility] Health and | [address] | | | | | [facility], [facility] 2 | [phone] | | | | | [place], [place] | | | | | | [address] | | | | | | [phone] | | | +--------+ + + + [...]
--- OUTSIDE RECORDS SUMMARY | ~2019-03-29 | XMS | Encounter Summary ---
Demographics + + + | Address | [address] | | | [place] [address] | + + + | Home Phone | | + + + | Preferred Language | Unknown | + + + | Marital Status | | + + + | Zoroastrianism Affiliation | Unknown | + + + [...] + | Ember Baca | ECON | [address] | | | | | [place] | | | | | [address] | | + + + + + Care Team Providers + +------+ + | Care Skills Instructor Name | Role | Phone | + +------+ + PCP | Unavailable | + +------+ + Encounter Details +--------+ + + + + | Date | Type | Department | Care Team | Description | +--------+ + + + + | 01/21/ | H&P-Transcr | | Physical, History | Hstry & Physical | | 2001 | ibed | | & | | +--------+ + + + + [...]
--- OUTSIDE RECORDS SUMMARY | ~2019-03-29 | XMS | Encounter Summary ---
Demographics + + + | Address | [address] | | | [place] [address] | + + + | Home Phone [...] + | Ember Baca | ECON | [address] | | | | | [place] | | | | | [address] | | + + + + + Care Team Providers + +------+ + | Care Barrel Raiser Name | Role | Phone | + [...] as of this encounter Progress Notes Interface, Bag Turner In - 04/10/2006 3:14 AM [facility] [place] [address] [place] [address] or February 07, 2001 Sammy Davis M.D. [address] [place] [id number] RE: ARASH BACA JR MR #: [id number] Dear Dr. Davis: I had the pleasure of seeing Mr. Baca as a discharge followup appointment after his recurrent transient ischemic events on January 21, 2001. He is neurologically stable and has not had any acute neurological spells since his discharge from the [facility]. As you are aware, Mr. Baca is [...] a 2-D echocardiogram which was done in [place] on January 26, 2001, and which did [...] extremities. Sensory examination is symmetric to touch. Tcrvwt-yj-jagy coordination is intact. Gait is without any [...] Sincerely, Donnie Valladares M.D. ALEXANDRA / [place] [id number] / [id number] / [id number] / [id number] signed by Interface, Bag Turner In at 04/10/2006 3:14 AM PDTdocume nted in this encounter Plan of Treatment Not on filedocumented as of this encounter Visit Diagnoses Not on filedocumented in this encounter"
--- OUTSIDE RECORDS SUMMARY | ~2019-03-29 | XMS | Clinical Summary ---
Demographics + + + | Address | [address] | | | [place] [address] | + + + | Home Phone | | + + + | Preferred Language | Unknown | + + + | Marital Status | | + + + | Faith Affiliation | Unknown | + + + | Race | Unknown | + + + | Ethnic Group | Unknown | + + + Author + + + | Author | [facility] | | | and [place] | + + + | Organization | [facility] | | | and [place] | + + + | Address | Unknown | + + + | Phone | Unavailable | + + + Support + + + + + | Name | Relationship | Address | Phone | + + + + + | Ember Baca | ECON | [address] | | | | | [place], | | | | | [place] [address] | | + + + + + Care Team Providers + +------+ + | Care Filter Plant Operator Name | Role | Phone | [...] | N/A: | SOFAMOR | | | [id number] | | - [id number]: Qty: 1 | c | Neck | DANEK - DIV | | | | | on 06/28/2016 by Kristofer Carroll | | | [employer] | | | | | MD Dalila | | | - [id number] | | | | + +--------+--------+ +--------+--------+--------+ | Algrft Spcr Cerv [id number] - | Graft | N/A: | [employer] - | | 09/07/ | [id number] | | [id number]: Qty: 1 on | | Spine | MEDT | | 2019 | 4 | | 06/28/2016 by Kristofer Carroll, | | Karlene | | | | /[id number] | | | | jerica | | | | 160 | | | | | | | | /[id number] | | | | | | | | [phone] | + +--------+--------+ +--------+--------+--------+ | Allgrft Grftn Pls 1cc Aseptic | Graft | N/A: | [employer] - | | 03/10/ | [id number] | | - [id number]: Qty: | | Spine | MEDT | [...] | N/A: | SOFAMOR | | | [id number] | | - [id number]: Qty: 4 | | Neck | DANEK [...] +--------+ +---------+--------+ | MEDICARE | MEDICA | [id number] | 01/25/20 | [phone] | | Medica | | | RE | | 15-Pre | 5 | | re | | | PART A | | sent | | | | | | AND B | | | | | | + +--------+ +--------+ +---------+--------+ | [employer] | UNITED | [id number] | 01/25/20 | [phone] | | Indemn | | | OF | | 15-Pre | 0 | | ity | | | [place] | | sent | | | | [...] Person | Self | [birth year] | [address] | | | al/Fam | | 1950 | [phone] | [place], | | | [place] | | | [address] (Home) | [place] [address] | + +--------+ +--------+ + + Advance Directives Patient has advance care planning documents, and code status on file. For more information, please contact:[facility] and [place] [address] + + + + + | Code Status | Date | Date | Comments | | | Activated | Inactivated | | + + + + + | Full Code | 06/28/2016 | 06/29/2016 | | | | 15:07 | 13:47 | | + + + + +
--- OUTSIDE RECORDS SUMMARY | ~2019-03-29 | XMS | Encounter Summary ---
Demographics + + + | Address | [address] | | | [place] [address] | + + + | Home Phone | | + + + | Preferred Language | Unknown | + + + | Marital Status | | + + + | Quaker Affiliation | Unknown | + + + | Race | White | + + + | Ethnic Group | Not or | + + + Author + + + | Author | [facility] | + + + | Organization | [facility] | + + + | Address | Unknown | + + + | Phone | Unavailable | + + + Support + + + + + | Name | Relationship | Address | Phone | + + + + + | Ember Baca | ECON | [address] | | | | | [place] | | | | | [address] | | + + + + + Care Team Providers + +------+ + | Care Hearth Feeder Name | Role | Phone | + +------+ + | Darci Bullock MD | PCP | | + +------+ + Encounter Details +--------+ + + + + | Date | Type | Department | Care Team | Description | +--------+ + + + + | 06/01/ | Documentati | [facility] | Clinic, Surgery | | | 2010 | on | Center at [facility] [address] | | | | | | [address] | | | | | | Mailcode: Center | | | | | | for [facility] and | | | | | | Healing, [address] | | | | | | [place], [place] | | | | | | [address] | | | | | | [phone] | | | +--------+ + + + [...]
--- OUTSIDE RECORDS SUMMARY | ~2019-03-29 | XMS | Clinical Summary ---
Demographics + + + | Address | [address] | | | [place] [address] | + + + | Home Phone | | + + + | Preferred Language | Unknown | + + + | Marital Status | | + + + | Denominational Affiliation | Unknown | + + + | Race | White | + + + | Ethnic Group | Not or | + + + Author + + + | Author | [facility] | + + + | Organization | [facility] | + + + | Address | Unknown | + + + | Phone | Unavailable | + + + Support + + + + + | Name | Relationship | Address | Phone | + + + + + | Ember Baca | ECON | [address] | | | | | [place] | | | | | [address] | | + + + + + Care Team Providers + +------+ + | Care Financial Sales Assistant Name | Role | Phone | + +------+ + | Darci Bullock MD | PCP | | + +------+ + Source Comments CODEY is fully live on both [facility] and [facility] Allergies + + + + + + [...] [facility] | MODA | [phone] | | [phone] | [address] | [address] | | | [address] | | [phone] | [phone] | | | | [place] | | esent | | [place], | | | | [place] | | | | [place] [address] | | + +--------+ +--------+ + +------+ + +--------+ +--------+ + + | Guarantor Name | Accoun | Relation to | Date | Phone | Billing Address | | | t Type | Patient | of | | | | | | | | | | + +--------+ +--------+ + + | Arash Baca Jr. | Person | Self | [birth year] | [address] | | | al/Fam | | 1950 | [phone] | [place] | | | [place] | | | [address] (Home) | [address] | + +--------+ +--------+ + +
--- OUTSIDE RECORDS SUMMARY | ~2019-03-29 | XMS | Encounter Summary ---
Demographics + + + | Address | [address] | | | [place] [address] | + + + | Home Phone | | + + + | Preferred Language | Unknown | + + + | Marital Status | | + + + | Christianity Affiliation | Unknown | + + + [...] + | Ember Baca | ECON | [address] | | | | | [place] | | | | | [address] | | + + + + + Care Team Providers + +------+ + | Care Hat Maker Name | Role | Phone | + +------+ + PCP | Unavailable | + +------+ + Encounter Details +--------+ + + + + | Date | Type | Department | Care Team | Description | +--------+ + + + + | 01/21/ | Results | | Other, Faculty | | | 2000 | Only | | [phone] | | +--------+ + + + + [...] | + +--------+ + + + | MRA CAROTID [facility] | Routin | 01/21/2001 | | Results for this | | | e | 2:30 PM | | procedure are in the | | | | PDT | | results section. | + +--------+ + + + | ORBITS, 3 VIEWS | Routin | 01/21/2001 | | Results for this | | | e | 8:22 AM | | procedure are in the | | | | PDT | | results section. | + +--------+ + + + | MRA BRAIN [facility] | Urgent | 01/21/2001 | | Results for this | | | | 8:00 AM | | procedure are in the | | | | PDT | | results section. | + +--------+ + + + | COAG MASTER PANEL | Urgent | 01/21/2001 | | Results for this | | | | 4:58 AM | | procedure are in the | | | | PDT | | results section. | + +--------+ + + + | PROTEIN C ACTIVITY | Urgent | 01/21/2001 | | Results for this | | REFLEX INR, PLASMA | | 4:58 AM | | procedure are in the | | | | PDT | | results section. | + +--------+ + + + | INR | Urgent | 01/21/2001 | | Results for this | | | | 4:58 AM | | procedure are in the | | | | PDT | | results section. | + +--------+ + + + | HEXAGONAL PLATELET | Urgent | 01/21/2001 | | Results for this | | APTT, PLASMA | | 4:58 AM | | procedure are in the | | | | PDT | | results section. | + +--------+ + + + | HOMOCYSTEINE TOTAL, | Routin | 01/21/2001 | | Results for this | | PLASMA | e | 4:58 AM | | procedure are in the | | | | PDT | | results section. | + +--------+ + + + | ANTICARDIOLIPIN | Urgent | 01/21/2001 | | Results for this | | IGG/M | | 4:58 AM | | procedure are in the | | | | PDT | | results section. | + +--------+ + + + | PROTEIN S ANTIGEN , | Urgent | 01/21/2001 | | Results for this | | FREE PLASMA | | 4:58 AM | | procedure are in the | | | | PDT | | results section. | + +--------+ + + + | APC RESISTANCE, | Urgent | 01/21/2001 | | Results for this | | PLASMA | | 4:58 AM | | procedure are in the | | | | PDT | | results section. | + +--------+ + + + | FIBRINOGEN | Urgent | 01/21/2001 | | Results for this | | | | 4:58 AM | | procedure are in the | | | | PDT | | results section. | + +--------+ + + + | ATIII ACTIVITY, | Urgent | 01/21/2001 | | Results for this | | PLASMA | | 4:58 AM | | procedure are in the | | | | PDT | | results section. | + +--------+ + + + | CT HEAD WO CONTRAST | Urgent | 01/21/2001 | | Results for this | | | | 12:55 AM | | procedure are in the | | | | PDT | | results section. | + +--------+ + + + | JOSE PANEL | Urgent | 01/21/2001 | | Results for this | | | | 12:30 AM | | procedure are in the | | | | PDT | | results section. | + +--------+ + + + | INR | Urgent | 01/21/2001 | | Results for this | | | | 12:30 AM | | procedure are in the | | | | PDT | | results section. | + +--------+ + + + | APTT (ACT. PART. | Urgent | 01/21/2001 | | Results for this | | THROMBO TIME) | | 12:30 AM | | procedure are in the | | | | PDT | | results section. | + +--------+ + + + documented in this encounter Results MRA CAROTID [facility] (01/21/2001 2:30 PM PDT) + + + + + + | Component | Value | Ref Range | Performed | Pathologist | | | | | At | Signature | + + + + + + | MRA CAROTID | Radiologist 1: VALERIA | | | | | [facility] | ELIANE CHAVEZ | | | | | | MMedhat-Radiologist 2: MANSI | | | | | | MAKI LeaMR | | | | | | ANGIOGRAPHY: 01/22/20 | | | | | | 01 Dictated | | | | | | 01/22/2001 CLINICAL | | | | | | HISTORY: Status post | | | | | | TIA. COMPARISON: There | | | | | | no previous studies | | | | | | available. TECHNIQUE: 2D | | | | | | time of flight study | | | | | | was done for the | | | | | | carotids in theneck and | | | | | | 3D time of flight study | | | | | | was done for the quileute | | | | | | of Ferrari. | | | | | | FINDINGS: Both the | | | | | | common carotid, internal | | | | | | carotids and | | | | | | externalcarotid arteries | | | | | | appear normal in course | | | | | | and caliber. There | | | | | | is noevidence of any | | | | | | significant | | | | | | stenosis,aneurysm or | | | | | | vascular | | | | | | malformationseen. Both | | | | | | the vertebral arteries | | | | | | are normal in course and | | | | | | caliber. Both the | | | | | | anterior cerebrals, the | | | | | | middle cerebrals and the | | | | | | posteriorcerebral | | | | | | arteries appear normal | | | | | | in course and | | | | | | caliber. The | | | | | | basilarartery appears | | | | | | normal. The branches | | | | | | of these vessels seen | | | | | | appearnormal. There | | | | | | is no evidence of any | | | | | | vascular malformationor | | | | | | aneurysm seen. | | | | | | IMPRESSION: Negative | | | | | | study. END OF | | | | | | IMPRESSION: | | | | + + + + + + + + | Specimen | + + | | + + + + + | Narrative | Performed At | + + + | Ordered by CAMERON ZAVALA M.D. | | + + + + +---------+ + + | Performing | Address | City/State/Zipcode | Phone Number | | Organization | | | | + +---------+ + + | [facility] DEPARTMENT OF | | | | | RADIOLOGY | | | | + +---------+ + + ORBITS, 3 VIEWS (01/21/2001 8:22 AM PDT) + + + + + + | Component | Value | Ref Range | Performed | Pathologist | | | | | At | Signature | + + + + + + | ORBITS, 3 | Radiologist 1: RAINA, | | | | | PATRICIA | CATARINO Sousa M.D.ORBIT | | | | | | VIEWS: 01/21/2001 | | | | | | Dictated 01/21/2001 | | | | | | HISTORY: Headache. | | | | | | Possible stroke. | | | | | | FINDINGS: There is no | | | | | | evidence of | | | | | | intraorbital metal. A | | | | | | 5 x 2 mmmetallic | | | | | | opacity projects just | | | | | | lateral to the right | | | | | | maxillary incisorand | | | | | | most likely represents | | | | | | dental | | | | | | material. Other | | | | | | radiopaque fillingsare | | | | | | present involving | | | | | | multiple teeth. There | | | | | | is a hypoplastic | | | | | | rightfrontal | | | | | | sinus. Left frontal, | | | | | | ethmoid, maxillary, and | | | | | | sphenoid sinusesare | | | | | | clear. No other | | | | | | abnormalities are seen | | | | | | involving the | | | | | | facialbones. IMPRESSION: | | | | | | Orbital study with no | | | | | | evidence of aneurysm | | | | | | clip or intraorbital | | | | | | metal. END OF | | | | | | IMPRESSION: | | | | + + + + + + + + | Specimen | + + | | + + + + + | Narrative | Performed At | + + + | Ordered by CAMERON ZAVALA M.D. | | + + + + +---------+ + + | Performing | Address | City/State/Zipcode | Phone Number | | Organization | | | | + +---------+ + + | [facility] DEPARTMENT OF | | | | | RADIOLOGY | | | | + +---------+ + + MRA BRAIN [facility] (01/21/2001 8:00 AM PDT) + + + + + + | Component | Value | Ref Range | Performed | Pathologist | | | | | At | Signature | + + + + + + | MRA BRAIN | Radiologist 1: VALERIA, | | | | | [facility] | ELIANE CHAVEZ, | | | | | | M.DColleen-Radiologist 2: MANSI, | | | | | | MAKI LeaMR | | | | | | ANGIOGRAPHY: 01/22/20 | | | | | | 01 Dictated | | | | | | 01/22/2001 CLINICAL | | | | | | HISTORY: Status post | | | | | | TIA. COMPARISON: There | | | | | | no previous studies | | | | | | available. TECHNIQUE: 2D | | | | | | time of flight study | | | | | | was done for the | | | | | | carotids in theneck and | | | | | | 3D time of flight study | | | | | | was done for the quileute | | | | | | of [place]. | | | | | | FINDINGS: Both the | | | | | | common carotid, internal | | | | | | carotids and | | | | | | externalcarotid arteries | | | | | | appear normal in course | | | | | | and caliber. There | | | | | | is noevidence of any | | | | | | significant | | | | | | stenosis,aneurysm or | | | | | | vascular | | | | | | malformationseen. Both | | | | | | the vertebral arteries | | | | | | are normal in course and | | | | | | caliber. Both the | | | | | | anterior cerebrals, the | | | | | | middle cerebrals and the | | | | | | posteriorcerebral | | | | | | arteries appear normal | | | | | | in course and | | | | | | caliber. The | | | | | | basilarartery appears | | | | | | normal. The branches | | | | | | of these vessels seen | | | | | | appearnormal. There | | | | | | is no evidence of any | | | | | | vascular malformationor | | | | | | aneurysm seen. | | | | | | IMPRESSION: Negative | | | | | | study. END OF | | | | | | IMPRESSION: | | | | + + + + + + + + | Specimen | + + | | + + + + + | Narrative | Performed At | + + + | Ordered by CAMERON ZAVALA M.D. | | + + + + +---------+ + + | Performing | Address | City/State/Zipcode | Phone Number | | Organization | | | | + +---------+ + + | [facility] DEPARTMENT OF | | | | | RADIOLOGY | | | | + +---------+ + + HOMOCYSTEINE, PLASMA, TOTAL (01/21/2001 4:58 AM PDT) + + + + + + | Component | Value | Ref Range | Performed | Pathologist | | | | | At | Signature | + + + + + + | HOMOCYSTEIN | 6.8Comment: Plasma | 4.0 - 12.0 | | | | E,PLASMA,TO | total homocysteine | umol/L | | | | PAPO | (tHcy) is a graded risk | | | | | | factor forcardiovasc- | | | | | | ular disease. The risk | | | | | | increases progressively | | | | | | with homocysteineconcen- | | | | | | tration. Maintenance of | | | | | | homocysteine levels | | | | | | below 10 umol/L | | | | | | isrecommended plasma is | | | | | | not properly | | | | | | from the cells at the | | | | | | time ofcollection. This | | | | | | test is performed | | | | | | pursuant to a licensing | | | | | | agreement | | | | | | with[employer] | | | | | | [employer] | | | | + + + + + + + + | Specimen | + + | | + + + + + | Narrative | Performed At | + + + | Ordered by CAMERON ZAVALA | | + + + + + + + + | Performing | Address | City/State/Zipcode | Phone Number | | Organization | | | | + + + + + | [facility] | [address] | [place], [place] | | | [facility] | | [address] | | + + + + + PROTEIN C ACTIVITY (01/21/2001 4:58 AM PDT) + +-------+ + + + | Component | Value | Ref Range | Performed | Pathologist | | | | | At | Signature | + +-------+ + + + | PROTEIN C | 1.25 | 0.82 - 1.54 | [facility] | | | ACTIVITY | | U/mL | DEPARTMENT | | | | | | OF | | | | | | PATHOLOGY | | + +-------+ + + + + + | Specimen | + + | | + + + + + | Narrative | Performed At | + + + | Ordered by CAMERON ZAVALA | [facility] | | | DEPARTMENT OF | | | PATHOLOGY | + + + + + + + + | Performing | Address | City/State/Zipcode | Phone Number | | Organization | | | | + + + + + | [facility] DEPARTMENT OF | [address] [facility] | [place] [address] | | | PATHOLOGY | [address] | | | + + + + + | [facility] DEPARTMENT OF | [address] | [place] [address] | | | PATHOLOGY | [address] | | | + + + + + HEXAGONAL PL APTT (01/21/2001 4:58 AM PDT) + +-------+ + + + | Component | Value | Ref Range | Performed | Pathologist | | | | | At | Signature | + +-------+ + + + | HEXAGONAL | 3.2 | <8.0 sec | [facility] | | | PL APTT | | | DEPARTMENT | | | | | | OF | | | | | | PATHOLOGY | | + +-------+ + + + + + | Specimen | + + | | + + + + + | Narrative | Performed At | + + + | Ordered by CAMERON ZAVALA [id number] HEXAGONAL: Negative for | [facility] | | Lupus-like inhibitor. | DEPARTMENT OF | | | PATHOLOGY | + + + + + + + + | Performing | Address | City/State/Zipcode | Phone Number | | Organization | | | | + + + + + | [facility] DEPARTMENT OF | [facility] [facility] | [place] [address] | | | PATHOLOGY | [address] | | | + + + + + | [facility] DEPARTMENT OF | [address] | [place] [address] | | | PATHOLOGY | [address] | | | + + + + + PROTEIN S ANTIGEN, FREE (01/21/2001 4:58 AM PDT) + +-------+ + + + | Component | Value | Ref Range | Performed | Pathologist | | | | | At | Signature | + +-------+ + + + | PROTEIN S | 1.32 | 0.73 - 1.49 | [facility] | | | ANTIGEN,EJ | | U/mL | DEPARTMENT | | | E | | | OF | | | | | | PATHOLOGY | | + +-------+ + + + + + | Specimen | + + | | + + + + + | Narrative | Performed At | + + + | Ordered by CAMERON ZAVALA | [facility] | | | DEPARTMENT OF | | | PATHOLOGY | + + + + + + + + | Performing | Address | City/State/Zipcode | Phone Number | | Organization | | | | + + + + + | [facility] DEPARTMENT OF | [address] [facility] | [place] [address] | | | PATHOLOGY | [address] | | | + + + + + | [facility] DEPARTMENT OF | [address] [facility] | [place] [address] | | | PATHOLOGY | [address] | | | + + + + + ATIII ACTIVITY (01/21/2001 4:58 AM PDT) + + + + + + | Component | Value | Ref Range | Performed | Pathologist | | | | | At | Signature | + + + + + + | ATIII | 0.97Comment: | 0.86 - 1.18 | [facility] | | | ACTIVITY, | Note: AT3 reference | U/mL | DEPARTMENT | | | PLASMA | range is not | | OF | | | | available for patients | | PATHOLOGY | | | | <6months. | | | | + + + + + + + + | Specimen | + + | | + + + + + | Narrative | Performed At | + + + | Ordered by CAMERON ZAVALA | [facility] | | | DEPARTMENT OF | | | PATHOLOGY | + + + + + + + + | Performing | Address | City/State/Zipcode | Phone Number | | Organization | | | | + + + + + | [facility] DEPARTMENT OF | [address] [facility] | [place] [address] | | | PATHOLOGY | [address] | | | + + + + + | [facility] DEPARTMENT OF | [facility] [facility] | [place] [address] | | | PATHOLOGY | [address] | | | + + + + + ANTICARDIOLIPIN GMA (01/21/2001 4:58 AM PDT) + +-------+ + + + | Component | Value | Ref Range | Performed | Pathologist | | | | | At | Signature | + +-------+ + + + | ANTICARDIOL | 12 | <20 PL Units | [facility] | | | IPIN IGG | | | DEPARTMENT | | | | | | OF | | | | | | PATHOLOGY | | + +-------+ + + + | ANTICARDIOL | 9 | <20 PL Units | [facility] | | | IPIN IGM | | | DEPARTMENT | | | | | | OF | | | | | | PATHOLOGY | | + +-------+ + + + | ANTICARDIOL | < 9 | <15 PL Units | [facility] | | | IPIN IGA | | | DEPARTMENT | | | | | | OF | | | | | | PATHOLOGY | | + +-------+ + + + + + | Specimen | + + | | + + + + + | Narrative | Performed At | + + + | Ordered by CAMERON ZAVALA Anticardiolipin GMA | [facility] | | Interpretive Data for Anticardiolipin Antibodies IgG, IgM | DEPARTMENT OF | | Negative: | PATHOLOGY | | ( 0-19) PL Units | | | Low | | | Positive: (20-30) | | | PL Units Moderate | | | Positive: (31-80) PL Units | | | High | | | Positive: ( > | | | 80) PL Units Interpretive Data for | | | Anticardiolipin Antibody IgA | | | Negative: | | | ( 0-14) PL Units | | | Low | | | Positive: (15-25) | | | PL Units Moderate | | | Positive: (26-80) PL Units | | | High | | | Positive: ( > | | | 80) PL Units | | + + + + + + + + | Performing | Address | City/State/Zipcode | Phone Number | | Organization | | | | + + + + + | [facility] DEPARTMENT OF | [address] | [place] [address] | | | PATHOLOGY | [address] | | | + + + + + | [facility] DEPARTMENT OF | [facility] [address] | [place] [address] | | | PATHOLOGY | [address] | | | + + + + + APC RESISTANCE (01/21/2001 4:58 AM PDT) + +-------+ + + + | Component | Value | Ref Range | Performed | Pathologist | | | | | At | Signature | + +-------+ + + + | APC | 2.5 | >2.0 | [facility] | | | RESISTANCE | | | DEPARTMENT | | | | | | OF | | | | | | PATHOLOGY | | + +-------+ + + + + + | Specimen | + + | | + + + + + | Narrative | Performed At | + + + | Ordered by CAMERON ZAVALA | [facility] | | | DEPARTMENT OF | | | PATHOLOGY | + + + + + + + + | Performing | Address | City/State/Zipcode | Phone Number | | Organization | | | | + + + + + | [facility] DEPARTMENT OF | [address] [facility] | [place] [address] | | | PATHOLOGY | [address] | | | + + + + + | [facility] DEPARTMENT OF | [address] [facility] | [place] [address] | | | PATHOLOGY | [address] | | | + + + + + FIBRINOGEN (01/21/2001 4:58 AM PDT) + +-------+ + + + | Component | Value | Ref Range | Performed | Pathologist | | | | | At | Signature | + +-------+ + + + | FIBRINOGEN | 274 | 180 - 380 mg/dL | [facility] | | | LEVEL | | | DEPARTMENT | | | | | | OF | | | | | | PATHOLOGY | | + +-------+ + + + + + | Specimen | + + | | + + + + + | Narrative | Performed At | + + + | Ordered by CAMERON ZAVALA | [facility] | | | DEPARTMENT OF | | | PATHOLOGY | + + + + + + + + | Performing | Address | City/State/Zipcode | Phone Number | | Organization | | | | + + + + + | [facility] DEPARTMENT OF | [address] | [place] [address] | | | PATHOLOGY | [address] | | | + + + + + | [facility] DEPARTMENT OF | [address] | [place] [address] | | | PATHOLOGY | [address] | | | + + + + + PROTHROMBIN TIME (01/21/2001 4:58 AM PDT) + +---------+ + + + | Component | Value | Ref Range | Performed | Pathologist | | | | | At | Signature | + +---------+ + + + | INR | Err req | 0.98 - 1.08 INR | [facility] | | | | | | DEPARTMENT | | | | | | OF | | | | | | PATHOLOGY | | + +---------+ + + + + + | Specimen | + + | | + + + + + | Narrative | Performed At | + + + | Ordered by CAMERON ZAVALA | [facility] | | | DEPARTMENT OF | | | PATHOLOGY | + + + + + + + + | Performing | Address | City/State/Zipcode | Phone Number | | Organization | | | | + + + + + | [facility] DEPARTMENT OF | [address] | [place], [place] [address] | | | PATHOLOGY | [address] | | | + + + + + | [facility] DEPARTMENT OF | [address] | [place] [address] | | | PATHOLOGY | [address] | | | + + + + + COA MASTER PANEL (01/21/2001 4:58 AM PDT) + +---------+ + + + | Component | Value | Ref Range | Performed | Pathologist | | | | | At | Signature | + +---------+ + + + | INR | Err req | 0.98 - 1.08 INR | [facility] | | | | | | DEPARTMENT | | | | | | OF | | | | | | PATHOLOGY | | + +---------+ + + + | FIBRINOGEN | 274 | 180 - 380 mg/dL | [facility] | | | LEVEL | | | DEPARTMENT | | | | | | OF | | | | | | PATHOLOGY | | + +---------+ + + + + + | Specimen | + + | | + + + + + | Narrative | Performed At | + + + | Ordered by CAMERON ALEGRE | | | DEPARTMENT OF | | | PATHOLOGY | + + + + + + + + | Performing | Address | City/State/Zipcode | Phone Number | | Organization | | | | + + + + + | [facility] DEPARTMENT OF | [address] | [place] [address] | | | PATHOLOGY | [address] | | | + + + + + | [facility] | [address] | [place] [address] | | | PATHOLOGY | [address] | | | + + + + + CT HEAD WO CONTRAST (01/21/2001 12:55 AM PDT) + + + + + + | Component | Value | Ref Range | Performed | Pathologist | | | | | At | Signature | + + + + + + | CT HEAD WO | Radiologist 1: VALERIA, | | | | | CONTRAST | ELIANE CHAVEZ M.D.HEAD | | | | | | CT: 01/21/2001 | | | | | | Dictated 01/21/2001 | | | | | | COMPARISON: No prior | | | | | | [facility] head CT or | | | | | | MRI. The patient is | | | | | | reported tohave an | | | | | | outside CT, however, at | | | | | | the time of the | | | | | | dictation, the outsideCT | | | | | | was not available for | | | | | | comparison. TECHNIQUE: | | | | | | Noncontrast head CT was | | | | | | performed with 5 mm | | | | | | axial imagesthrough the | | | | | | skull base followed by | | | | | | 10 mm to the vertex. | | | | | | Standard brainand bone | | | | | | algorithms were | | | | | | performed. FINDINGS: | | | | | | There is a punctate | | | | | | calcification in the | | | | | | left basal ganglialikely | | | | | | physiologic in | | | | | | nature. There is no | | | | | | evidence of | | | | | | intracranialhemorrhage, | | | | | | infarction, or mass. The | | | | | | peralta/white matter | | | | | | junction ispreserved. | | | | | | There is no mass effect | | | | | | or midline shift. The | | | | | | bony calvarium is | | | | | | intact. There is minimal | | | | | | mucosal thickening | | | | | | inthe ethmoid and | | | | | | sphenoid sinuses. | | | | | | IMPRESSION: No evidence | | | | | | of infarction or | | | | | | hemorrhage. END OF | | | | | | IMPRESSION: | | | | + + + + + + + + | Specimen | + + | | + + + + + | Narrative | Performed At | + + + | Ordered by CAMERON ZAVALA M.D. | | + + + + +---------+ + + | Performing | Address | City/State/Zipcode | Phone Number | | Organization | | | | + +---------+ + + | [facility] DEPARTMENT OF | | | | | RADIOLOGY | | | | + +---------+ + + PROTHROMBIN TIME (01/21/2001 12:30 AM PDT) + + + + + + | Component | Value | Ref Range | Performed | Pathologist | | | | | At | Signature | + + + + + + | INR | 0.95 (L)Comment: | 0.98 - 1.08 INR | [facility] | | | | PT INR | | DEPARTMENT | | | | Therapeutic ranges for | | OF | | | | full | | PATHOLOGY | | | | anticoagulation: | | | | | | INR for | | | | | | Venous | | | | | | Thromboembolism | | | | | | | | | | | | (2.0-3.0)INR | | | | | | INR for most | | | | | | patients with mech. | | | | | | valves (2.5-3.5)I | | | | | | NR | | | | + + + + + + + + | Specimen | + + | | + + + + + | Narrative | Performed At | + + + | Ordered by CAMERON ZAVALA | [facility] | | | DEPARTMENT OF | | | PATHOLOGY | + + + + + + + + | Performing | Address | City/State/Zipcode | Phone Number | | Organization | | | | + + + + + | [facility] | [address] [place] [address] | [place] [address] | | | PATHOLOGY | [address] | | | + + + + + | [facility] | [address] [place] [address] | [place] [address] | | | PATHOLOGY | [address] | | | + + + + + APTT (ACT. PART. THROMBO TIME) (01/21/2001 12:30 AM PDT) + + + + + + | Component | Value | Ref Range | Performed | Pathologist | | | | | At | Signature | + + + + + + | APTT | 30.4Comment: | 27.0 - 35.0 | [facility] | | | | APTT | seconds | DEPARTMENT | | | | Therapeutic | | OF | | | | Range | | PATHOLOGY | | | | | | | | | | (70-110)sec | | | | | | Hepa | | | | | | rin levels of 0.35-0.7 | | | | | | U/mL | | | | + + + + + + + + | Specimen | + + | | + + + + + | Narrative | Performed At | + + + | Ordered by CAMERON ZAVALA | [facility] | | | DEPARTMENT OF | | | PATHOLOGY | + + + + + + + + | Performing | Address | City/State/Zipcode | Phone Number | | Organization | | | | + + + + + | [facility] DEPARTMENT OF | [address] [facility] | [place] [address] | | | PATHOLOGY | [address] | | | + + + + + | [place] DEPARTMENT OF | [address] | [place] [address] | | | PATHOLOGY | [address] | | | + + + + + BRYAN MASTER PANEL (01/21/2001 12:30 AM PDT) + + + + + + | Component | Value | Ref Range | Performed | Pathologist | | | | | At | Signature | + + + + + + | INR | 0.95 (L)Comment: | 0.98 - 1.08 INR | [facility] | | | | PT INR | | DEPARTMENT | | | | Therapeutic ranges for | | OF | | | | full | | PATHOLOGY | | | | anticoagulation: | | | | | | INR for | | | | | | Venous | | | | | | Thromboembolism | | | | | | | | | | | | (2.0-3.0)INR | | | | | | INR for most | | | | | | patients with mech. | | | | | | valves (2.5-3.5)I | | | | | | NR | | | | + + + + + + | APTT | 30.4Comment: | 27.0 - 35.0 | [facility] | | | | APTT | seconds | DEPARTMENT | | | | Therapeutic | | OF | | | | Range | | PATHOLOGY | | | | | | | | | | (70-110)sec | | | | | | Hepa | | | | | | rin levels of 0.35-0.7 | | | | | | U/mL | | | | + + + + + + + + | Specimen | + + | | + + + + + | Narrative | Performed At | + + + | Ordered by CAMERON ZAVALA | [facility] | | | DEPARTMENT OF | | | PATHOLOGY | + + + + + + + + | Performing | Address | City/State/Zipcode | Phone Number | | Organization | | | | + + + + + | [facility] | [address] | [place] [address] | | | PATHOLOGY | [address] | | | + + + + + | [facility] | [address] | [place] [address] | | | PATHOLOGY | [address] | | | + + + + + documented in this encounter Visit Diagnoses Not on filedocumented in this encounter"
--- OUTSIDE RECORDS SUMMARY | ~2019-03-29 | XMS | Encounter Summary ---
Demographics + + + | Address | [address] | | | [place] [address] | + + + | Home Phone | | + + + | Preferred Language | Unknown | + + + | Marital Status | | + + + | Temple Affiliation | Unknown | + + + [...] + | Ember Baca | ECON | [address] | | | | | [place] | | | | | [address] | | + + + + + Care Team Providers + +------+ + | Care Diesel Lube Tech Name | Role | Phone | + [...] as of this encounter Progress Notes Interface, Interior Design Professor In - 04/10/2006 3:14 AM [facility] [place] [address] [place], [place] [address] or February 07, 2001 Sammy Davis M.D. [address] [place] [id number] RE: ARASH BACA JR MR #: [id number] Dear Dr. Davis: I had the pleasure of seeing Mr. Baca as a discharge followup appointment after his recurrent transient ischemic events on January 21, 2001. He is neurologically stable and has not had any acute neurological spells since his discharge from the [facility]. As you are aware, Mr. Baca is [...] a 2-D echocardiogram which was done in [place] on January 26, 2001, and which did [...] extremities. Sensory examination is symmetric to touch. Kvpncy-bn-yvdx coordination is intact. Gait is without any [...] Sincerely, Donnie Valladares M.D. ALEXANDRA / JULY [id number] / [id number] / [id number] / [id number] signed by Interface, Interior Design Professor In at 04/10/2006 3:14 AM PDTdocume nted in this encounter Plan of Treatment Not on filedocumented as of this encounter Visit Diagnoses Not on filedocumented in this encounter"
--- OUTSIDE RECORDS SUMMARY | ~2019-03-29 | XMS | Encounter Summary ---
Demographics + + + | Address | [address] | | | [place] [address] | + + + | Home Phone | | + + + | Preferred Language | Unknown | + + + | Marital Status | | + + + | Congregational Affiliation | Unknown | + + + | Race | White | + + + | Ethnic Group | Not or | + + + Author + + + | Author | [facility] | + + + | Organization | [facility] | + + + | Address | Unknown | + + + | Phone | Unavailable | + + + Support + + + + + | Name | Relationship | Address | Phone | + + + + + | Ember Baca | ECON | [address] | | | | | [place] | | | | | [address] | | + + + + + Care Team Providers + +------+ + | Care Virtual Office Assistant Name | Role | Phone | [...]
--- OUTSIDE RECORDS SUMMARY | ~2019-03-29 | XMS | Encounter Summary ---
Demographics + + + | Address | [address] | | | [place] [address] | + + + | Home Phone | | + + + | Preferred Language | Unknown | + + + | Marital Status | | + + + | Mandaen Affiliation | Unknown | + + + [...] + | Ember Baca | ECON | [address] | | | | | [place] | | | | | [address] | | + + + + + Care Team Providers + +------+ + | Care Organizational Psychologist Name | Role | Phone | + [...]
--- OUTSIDE RECORDS SUMMARY | ~2019-03-29 | XMS | Clinical Summary ---
Demographics + + + | Address | [address] | | | [place] [address] | + + + | Home Phone | | + + + | Preferred Language | Unknown | + + + | Marital Status | | + + + | Taoism Affiliation | Unknown | + + + | Race | Unknown | + + + | Ethnic Group | Unknown | + + + Author + + + | Author | [facility] | | | and [place] | + + + | Organization | [facility] | | | and [place] | + + + | Address | Unknown | + + + | Phone | Unavailable | + + + Support + + + + + | Name | Relationship | Address | Phone | + + + + + | Ember Baca | ECON | [address] | | | | | [place], | | | | | [place] [address] | | + + + + + Care Team Providers + +------+ + | Care Molding Associate Name | Role | Phone | + [...] | N/A: | SOFAMOR | | | [id number] | | - [id number]: Qty: 1 | c | Neck | DANEK - DIV | | | | | on 06/28/2016 by Kristofer Carroll | | | [employer] | | | | | MD Dalila | | | - SFDK | | | | + +--------+--------+ +--------+--------+--------+ | Algrft Spcr Cerv [id number] - | Graft | N/A: | [employer] - | | 09/07/ | [id number] | | [id number]: Qty: 1 on | | Spine | MEDT | | 2019 | 4 | | 06/28/2016 by Kristofer Carroll, | | Karlene | | | | /[address] | | | | jerica | | | | 160 | | | | | | | | /[address] | | | | | | | | 9886 | + +--------+--------+ +--------+--------+--------+ | Allgrft Grftn Pls 1cc Aseptic | Graft | N/A: | [employer] - | | 03/10/ | [id number] | | - [id number]: Qty: | | Spine | MEDT | [...] | N/A: | SOFAMOR | | | [id number] | | - [id number]: Qty: 4 | | Neck | DANEK [...] +--------+ +---------+--------+ | MEDICARE | MEDICA | [id number] | 01/25/20 | [phone] | | Medica | | | RE | | 15-Pre | 5 | | re | | | PART A | | sent | | | | | | AND B | | | | | | + +--------+ +--------+ +---------+--------+ | [employer] | UNITED | [id number] | 01/25/20 | [phone] | | Indemn | | | OF | | 15-Pre | 0 | | ity | | | [place] | | sent | | | | [...] Person | Self | [birth year] | [address] | | | al/Fam | | 1950 | [phone] | [place], | | | [place] | | | 8 (Home) | [place] [address] | + +--------+ +--------+ + + Advance Directives Patient has advance care planning documents, and code status on file. For more information, please contact:[facility] and [place] [address] + + + + + | Code Status | Date | Date | Comments | | | Activated | Inactivated | | + + + + + | Full Code | 06/28/2016 | 06/29/2016 | | | | 15:07 | 13:47 | | + + + + +
--- OUTSIDE RECORDS SUMMARY | ~2019-03-29 | XMS | Encounter Summary ---
Demographics + + + | Address | [address] | | | [place] [address] | + + + | Home Phone [...] + + + | Author | [facility] | + + + | Organization | [facility] | + + + | Address | Unknown | + + + | Phone | Unavailable | + + + Support + + + + + | Name | Relationship | Address | Phone | + + + + + | Ember Baca | ECON | [address] | | | | | [place] | | | | | [address] | | + + + + + Care Team Providers + +------+ + | Care Bronc Breaker Name | Role | Phone | + [...] as of this encounter Discharge Summaries Interface, Nursery Teacher In - 04/15/2006 1:[address] [phone] [facility] EMERGENCY DEPARTMENT OBSERVATION [...] Symptoms had resolved with patient presentation to [facility] Emergency Department. The patient was apparently a transfer from [facility], where he had had a head CT done which was negative. Carotid ultrasound was negative. At [facility] the patient was with stable vital signs. [...] normal. PT/PTT is normal. Head CT at [place] was negative. Carotid ultrasounds were negative done at [place]. 12-lead EKG is without ischemic changes. Brain MRA was negative per Dr. Granger. 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 They were negative for foreign body. CONDITION [...] patient's care. Diana Esteves M.D. DW/ja2 P [id number] signed by Interface, Nursery Teacher In at 04/15/2006 1:11 AM PDTdocume nted in this encounter Plan of Treatment Not on filedocumented as of this encounter Visit Diagnoses Not on filedocumented in this encounter"
--- OUTSIDE RECORDS SUMMARY | ~2019-03-29 | XMS | Clinical Summary ---
Demographics + + + | Address | [address] | | | [place] [address] | + + + | Home Phone | | + + + | Preferred Language | Unknown | + + + | Marital Status | | + + + | Baptism Affiliation | Unknown | + + + | Race | White | + + + | Ethnic Group | Not or | + + + Author + + + | Author | [facility] | + + + | Organization | [facility] | + + + | Address | Unknown | + + + | Phone | Unavailable | + + + Support + + + + + | Name | Relationship | Address | Phone | + + + + + | Ember Baca | ECON | [address] | | | | | [place] | | | | | [address] | | + + + + + Care Team Providers + +------+ + | Care Research Chef Name | Role | Phone | + +------+ + | Darci Bullock MD | PCP | | + +------+ + Source Comments CODEY is fully live on both [facility] and [facility] Allergies + + + + + + [...] OEBB | MODA | [phone] | | [phone] | [address] | [address] | | | OEBB | | [address] | [phone] | | | | [place] | | esent | | [place], | | | | [place] | | | | [place] [address] | | + +--------+ +--------+ + +------+ + +--------+ +--------+ + + | Guarantor Name | Accoun | Relation to | Date | Phone | Billing Address | | | t Type | Patient | of | | | | | | | | | | + +--------+ +--------+ + + | Arash Baca Jr. | Person | Self | [birth year] | [address] | | | al/Fam | | 1950 | [phone] | [place] | | | [place] | | | [address] (Home) | [address] | + +--------+ +--------+ + +
--- OUTSIDE RECORDS SUMMARY | ~2019-03-29 | XMS | Encounter Summary ---
Demographics + + + | Address | [address] | | | [place] [address] | + + + | Home Phone | | + + + | Preferred Language | Unknown | + + + | Marital Status | | + + + | Rastafarian Affiliation | Unknown | + + + [...] + | Ember Baca | ECON | [address] | | | | | [place] | | | | | [address] | | + + + + + Care Team Providers + +------+ + | Care Hearing Impaired Teacher Name | Role | Phone | + [...] | | Fistula | Epic Dept | [address] | | | Required | | Crohn's | | [address] | | | | | Procedures | | Alyson Dumont | | | | | CONSULT TO | | [place], [place] | | | | | [place]OR[place]AL | | [address] | | | | | SURGERY | | Phone: | | | | | | | [phone] | | | | | | | Fax: | | | | | | | [phone] | +--------+ + + + + + Encounter Details +--------+---------+ + + + | Date | Type | Department | Care Team | Description | +--------+---------+ + + + | 07/06/ | Office | Digestive Health | Kelsea Ontievros MD | Anal fistula | | 2011 | Visit | [facility] [address] | [address] | (Primary Dx) | | | | [address] | Alyson Dumont [place], | | | | | Mailcode: [place] | [place] [address] | | | | | [facility] and | [phone] | | | | | [facility], [facility] [address] | | | | | | [place], [place] | | | | | | [address] | | | | | | [phone] | | | +--------+---------+ + + + [...] to do. The experts recommend the [address] [place] Way to Quitting. o Call the [place] Tobacco Quitline at: 8-370-QUIT NOW or visit the website www.[place].org. A Quitline specialist will talk to you and help you decide the best way to quit. Th e Quitline may also be able to send you FREE medications. o For help online: Centers for Disease Control website at www.cdc.gov/tobacco or [facility] [place] website for live on-line assistance for smokers at www.smokefree.gov [address] [place] Way to Quitting These four keys can help withdrawal and help you successfully quit. 1. Set a specific date to quit. 2. Take the stop smoking medication your doctor recommends. 3. Get help and support from friends, family, and your health professional. 4. Learn how to stay quit. [address] [place] Way to Quitting [place] 1: SET A QUIT [...] out internet quit sites. o Call the [place] Tobacco Quitline at 5-096-Veqa Now. [place] 4: LEARN HOW TO STAY [...] you are feeling withdrawal. Following the [address] [place] [address] to Quitting can help smokers make withdrawal [...] willing to stick with it! Developed by: [facility] Smoking Cessation Center [email or web address] 02/27/07 documented in this encounter Progress Notes Kelsea Ontiveros MD - 07/06/2011 12:49 PM PST [facility]ON [facility] RECTAL SURGERY History and Physical New Patient Assessment: 61 y.o. male with elevated cholesterol, TIA's, and a hiatal hernia left ccdzugw-yy-pvp drainage of left perirectal abscess (05/2004) drainage [...] abscess was found. That was drained in [place], [place]. On 10/07/04, Dr. Eber Baxter performed [...] mucosa) Drainage of left perirectal abscess 05/2004 [place], [place] Drainage of left supralevator abscess, posterior midilne fistulectomy/seton placement posterior midline external opening, posterior midline internal opening, left rectal inter nal opening 4 cm above the dentate line, Dr. Baxter, [place], [place] Capsule endoscopy 05/2011 negative per patient Cholecystectomy, laparoscopic ~2003 or 2005 [place], [place] Allergies Allergen Reactions Celebrex (Celecoxib) TIA's [...] Referral patient, I spent 28 minutes of aegh-jd-mhut time, of which more than half the time was spent in counseling. 12 minute document review documented in this encounte r Plan of Treatment Not on filedocumented as of this encounter Procedures + +--------+ + + + | Procedure Name | Priori | Date/Time | Associated Diagnosis | Comments | | | ty | | | | + +--------+ + + + | IL ANOSCOPY, DIAG | Routin | 08/11/2011 | [...]
--- OUTSIDE RECORDS SUMMARY | ~2019-03-29 | XMS | Encounter Summary ---
Demographics + + + | Address | [address] | | | [place] [address] | + + + | Home Phone [...] + | Ember Baca | ECON | [address] | | | | | [place] | | | | | [address] | | + + + + + Care Team Providers + +------+ + | Care Franchise Specialist Name | Role | Phone | + +------+ + PCP | Unavailable | + +------+ + Encounter Details +--------+ + + + + | Date | Type | Department | Care Team | Description | +--------+ + + + + | 01/21/ | Results | | Other, Faculty | | | 2000 | Only | | [phone] | | +--------+ + + + + [...] | | | was done for the [facility] | | | | | | of [...] | | + +---------+ + + | [facility] DEPARTMENT OF | | | | | [...] | | + +---------+ + + | [facility] DEPARTMENT OF | | | | | [...] | | | was done for the [facility] | | | | | | of [...] with[employer]etitive | | | | | | [employer] | | | | + + [...] [facility] | [address] | [place], [place] | | | [facility] | | [address] | | + + + + + [...] | + + + + + | [facility] DEPARTMENT OF | [address] | [place] [address] | | | PATHOLOGY | [address] | | | + + + + + | [facility] DEPARTMENT OF | [address] | [place] [address] | | | PATHOLOGY | [address] [...] + + | Ordered by CAMERON ZAVALA [phone] HEXAGONAL: Negative for | [facility] | | Lupus-like inhibitor. | DEPARTMENT OF | | | PATHOLOGY | + + + + + + + + | Performing | Address | City/State/Zipcode | Phone Number | | Organization | | | | + + + + + | [facility] DEPARTMENT OF | [facility] | [place] [address] | | | PATHOLOGY | [address] | | | + + + + + | [facility] DEPARTMENT OF | [address] | [place] [address] | | | PATHOLOGY | [address] [...] | + + + + + | [facility] DEPARTMENT OF | [address] [facility] | [place] [address] | | | PATHOLOGY | [address] | | | + + + + + | [facility] DEPARTMENT OF | [address] [facility] [address] | [place] [address] | | | PATHOLOGY | [address] [...] | + + + + + | [facility] DEPARTMENT OF | [address] [facility] [address] [address] | [place] [address] | | | PATHOLOGY | [address] | | | + + + + + | [facility] DEPARTMENT OF | [facility] [address] | [place] [address] | | | PATHOLOGY | [address] [...] | + + + + + | [facility] DEPARTMENT OF | [address] | [place] [address] | | | PATHOLOGY | [address] | | | + + + + + | [facility] DEPARTMENT OF | [facility] [address] | [place] [address] | | | PATHOLOGY | [address] [...] + | [place] DEPARTMENT OF | [address] [facility] [address] | [place] [address] | | | PATHOLOGY | [address] | | | + + + + + | [facility] DEPARTMENT OF | [address] [facility] | [place] [address] | | | PATHOLOGY | [address] | | | + + + + + FIBRINOGEN (01/21/2001 4:58 AM PDT) + +-------+ + + + | Component | Value | Ref Range | Performed | Pathologist | | | | | At | Signature | + +-------+ + + + | FIBRINOGEN | 274 | 180 - 380 mg/dL | [facility] | | | LEVEL | | | DEPARTMENT | | | | | | OF | | | | | | PATHOLOGY | | + +-------+ + + + + + | Specimen | + + | | + + + + + | Narrative | Performed At | + + + | Ordered by CAMERON ZAVALA | [facility] | | | DEPARTMENT OF | | | PATHOLOGY | + + + + + + + + | Performing | Address | City/State/Zipcode | Phone Number | | Organization | | | | + + + + + | [facility] DEPARTMENT OF | [address] | [place] [address] | | | PATHOLOGY | [address] | | | + + + + + | [facility] DEPARTMENT OF | [address] | [place] [address] | | | PATHOLOGY | [address] [...] + | Ordered by CAMERON ZAVALA | [facility] | | | DEPARTMENT OF | | | PATHOLOGY | + + + + + + + + | Performing | Address | City/State/Zipcode | Phone Number | | Organization | | | | + + + + + | [facility] DEPARTMENT OF | [address] | [place], [place] [address] | | | PATHOLOGY | [address] | | | + + + + + | [facility] DEPARTMENT OF | [address] | [place] [address] | | | PATHOLOGY | [address] [...] DEPARTMENT OF | [address] | [place] [address] | | | PATHOLOGY | [address] | | | + + + + + | [facility] | [address] | [place] [address] | | | PATHOLOGY | [address] [...] prior | | | | | | [facility] head CT or | | | | [...] | | + +---------+ + + | [facility] DEPARTMENT OF | | | | | [...] | + + + + + | [facility] | [address] [place] [address] | [place] [address] | | | PATHOLOGY | [address] | | | + + + + + | [facility] | [address] [place] [address] | [place] [address] | | | PATHOLOGY | [address] [...] + | Ordered by CAMERON ZAVALA | [facility] | | | DEPARTMENT OF | | | PATHOLOGY | + + + + + + + + | Performing | Address | City/State/Zipcode | Phone Number | | Organization | | | | + + + + + | [facility] DEPARTMENT OF | [address] [facility] [address] | [place] [address] | | | PATHOLOGY | [address] | | | + + + + + | [facility] DEPARTMENT OF | [address] | [place] [address] | | | PATHOLOGY | [address] [...] | + + + + + | [facility] | [address] | [place] [address] | | | PATHOLOGY | [address] | | | + + + + + | [facility] | [address] | [place] [address] | | | PATHOLOGY | [address] | | | + + + + + documented in this encounter Visit Diagnoses Not on filedocumented in this encounter"
--- OUTSIDE RECORDS SUMMARY | ~2019-03-29 | XMS | Encounter Summary ---
Demographics + + + | Address | [address] | | | [place] [address] | + + + | Home Phone | | + + + | Preferred Language | Unknown | + + + | Marital Status | | + + + | Latter Day Affiliation | Unknown | + + + [...] + | Ember Baca | ECON | [address] | | | | | [place] | | | | | [address] | | + + + + + Care Team Providers + +------+ + | Care Social Services Assistant Name | Role | Phone | [...]
--- OUTSIDE RECORDS SUMMARY | ~2019-03-29 | XMS | Encounter Summary ---
Demographics + + + | Address | [address] | | | [place] [address] | + + + | Home Phone | | + + + | Preferred Language | Unknown | + + + | Marital Status | | + + + | Cheondoism Affiliation | Unknown | + + + [...] + | Ember Baca | ECON | [address] | | | | | [place] | | | | | [address] | | + + + + + Care Team Providers + +------+ + | Care Environmental Health Inspector Name | Role | Phone | + +------+ + PCP | Unavailable | + +------+ + Encounter Details +--------+ + + + + | Date | Type | Department | Care Team | Description | +--------+ + + + + | 01/21/ | Results | | Other, Faculty | | | 2000 | Only | | [phone] | | +--------+ + + + + [...] | | | was done for the menominee | | | | | | of [...] | | + +---------+ + + | [facility] DEPARTMENT OF | | | | | [...] | | + +---------+ + + | [facility] DEPARTMENT OF | | | | | [...] | | | was done for the menominee | | | | | | of [...] withCompetitive | | | | | | [employer] | | | | + + [...] [facility] | [address] | [place], [place] | | | UNIV [facility] | | [address] | | + + + + + [...] | + + + + + | [facility] DEPARTMENT OF | [address] [facility] | [place] [address] | | | PATHOLOGY | [address] | | | + + + + + | [facility] DEPARTMENT OF | [address] | [place] [address] | | | PATHOLOGY | [address] [...] + + | Ordered by CAMERON ZAVALA [id number] HEXAGONAL: Negative for | [facility] | | Lupus-like inhibitor. | DEPARTMENT OF | | | PATHOLOGY | + + + + + + + + | Performing | Address | City/State/Zipcode | Phone Number | | Organization | | | | + + + + + | [place] DEPARTMENT OF | [facility] | [place] [address] | | | PATHOLOGY | [address] | | | + + + + + | [facility] DEPARTMENT OF | [address] | [place] [address] | | | PATHOLOGY | [address] [...] | + + + + + | [facility] DEPARTMENT OF | [address] [facility] | [place] [address] | | | PATHOLOGY | [address] | | | + + + + + | [facility] DEPARTMENT OF | [address] [facility] | [place] [address] | | | PATHOLOGY | [address] [...] | + + + + + | [facility] DEPARTMENT OF | [address] [facility] | [place] [address] | | | PATHOLOGY | [address] | | | + + + + + | [facility] DEPARTMENT OF | [facility] | [place] [address] | | | PATHOLOGY | [address] [...] | + + + + + | [facility] DEPARTMENT OF | [address] | [place] [address] | | | PATHOLOGY | [address] | | | + + + + + | [facility] DEPARTMENT OF | [facility] [address] | [place] [address] | | | PATHOLOGY | [address] [...] + | [place] DEPARTMENT OF | [address] [facility] | [place] [address] | | | PATHOLOGY | [address] | | | + + + + + | [facility] DEPARTMENT OF | [address] [facility] | [place] [address] | | | PATHOLOGY | [address] | | | + + + + + FIBRINOGEN (01/21/2001 4:58 AM PDT) + +-------+ + + + | Component | Value | Ref Range | Performed | Pathologist | | | | | At | Signature | + +-------+ + + + | FIBRINOGEN | 274 | 180 - 380 mg/dL | [facility] | | | LEVEL | | | DEPARTMENT | | | | | | OF | | | | | | PATHOLOGY | | + +-------+ + + + + + | Specimen | + + | | + + + + + | Narrative | Performed At | + + + | Ordered by CAMERON ZAVALA | [facility] | | | DEPARTMENT OF | | | PATHOLOGY | + + + + + + + + | Performing | Address | City/State/Zipcode | Phone Number | | Organization | | | | + + + + + | [facility] DEPARTMENT OF | [address] | [place] [address] | | | PATHOLOGY | [address] | | | + + + + + | [facility] DEPARTMENT OF | [address] | [place] [address] | | | PATHOLOGY | [address] [...] + | Ordered by CAMERON ZAVALA | [facility] | | | DEPARTMENT OF | | | PATHOLOGY | + + + + + + + + | Performing | Address | City/State/Zipcode | Phone Number | | Organization | | | | + + + + + | [facility] DEPARTMENT OF | [address] | [place], [place] [address] | | | PATHOLOGY | [address] | | | + + + + + | [facility] DEPARTMENT OF | [address] | [place] [address] | | | PATHOLOGY | [address] [...] DEPARTMENT OF | [address] | [place] [address] | | | PATHOLOGY | [address] | | | + + + + + | [facility] | [address] | [place] [address] | | | PATHOLOGY | [address] [...] prior | | | | | | [facility] head CT or | | | | [...] | | + +---------+ + + | [facility] DEPARTMENT OF | | | | | [...] | + + + + + | [facility] | [address] [place] [address] | [place] [address] | | | PATHOLOGY | [address] | | | + + + + + | [facility] | [address] [place] [address] | [place] [address] | | | PATHOLOGY | [address] [...] + | Ordered by CAMERON ZAVALA | [facility] | | | DEPARTMENT OF | | | PATHOLOGY | + + + + + + + + | Performing | Address | City/State/Zipcode | Phone Number | | Organization | | | | + + + + + | [facility] DEPARTMENT OF | [address] [facility] | [place] [address] | | | PATHOLOGY | [address] | | | + + + + + | [place] DEPARTMENT OF | [address] | [place] [address] | | | PATHOLOGY | [address] [...] | + + + + + | [facility] | [address] | [place] [address] | | | PATHOLOGY | [address] | | | + + + + + | [facility] | [address] | [place] [address] | | | PATHOLOGY | [address] | | | + + + + + documented in this encounter Visit Diagnoses Not on filedocumented in this encounter"
--- OUTSIDE RECORDS SUMMARY | ~2019-03-29 | XMS | Encounter Summary ---
Demographics + + + | Address | [address] | | | [place] [address] | + + + | Home Phone [...] + + + | Author | [facility] | + + + | Organization | [facility] | + + + | Address | Unknown | + + + | Phone | Unavailable | + + + Support + + + + + | Name | Relationship | Address | Phone | + + + + + | Ember Baca | ECON | [address] | | | | | [place] | | | | | [address] | | + + + + + Care Team Providers + +------+ + | Care Pan Tank Worker Name | Role | Phone | + +------+ + PCP | Unavailable | + +------+ + Encounter Details +--------+ + + + + | Date | Type | Department | Care Team | Description | +--------+ + + + + | 05/17/ | Abstract | Digestive Health | Ana M | | | 2010 | | [place] at [facility] [address] | MD Santi [address] | | | | | [address] | [address] | | | | | Mailcode: Center | [place], [place] | | | | | [facility] and | [address] | | | | | [facility], [facility] [address] | [phone] | | | | | [place], [place] | | | | | | [address] | | | | | | [phone] | | | +--------+ + + + [...]
--- OUTSIDE RECORDS SUMMARY | ~2019-03-29 | XMS | Encounter Summary ---
Demographics + + + | Address | [address] | | | [place] [address] | + + + | Home Phone | | + + + | Preferred Language | Unknown | + + + | Marital Status | | + + + | Restoration Affiliation | Unknown | + + + | Race | White | + + + | Ethnic Group | Not or | + + + Author + + + | Author | [facility] | + + + | Organization | [facility] | + + + | Address | Unknown | + + + | Phone | Unavailable | + + + Support + + + + + | Name | Relationship | Address | Phone | + + + + + | Ember Baca | ECON | [address] | | | | | [place] | | | | | [address] | | + + + + + Care Team Providers + +------+ + | Care Aircraft Engine Installer Name | Role | Phone | + [...]
--- OUTSIDE RECORDS SUMMARY | ~2019-03-29 | XMS | Encounter Summary ---
Demographics + + + | Address | [address] | | | [place] [address] | + + + | Home Phone | | + + + | Preferred Language | Unknown | + + + | Marital Status | | + + + | Druze Affiliation | Unknown | + + + | Race | White | + + + | Ethnic Group | Not or | + + + Author + + + | Author | [facility] | + + + | Organization | [facility] | + + + | Address | Unknown | + + + | Phone | Unavailable | + + + Support + + + + + | Name | Relationship | Address | Phone | + + + + + | Ember Baca | ECON | [address] | | | | | [place] | | | | | [address] | | + + + + + Care Team Providers + +------+ + | Care Senior Research Manager Name | Role | Phone | + [...] | | Fistula | Epic Dept | [address] | | | Required | | Crohn's | | [address] | | | | | Procedures | | Alyson [place]ont | | | | | CONSULT TO | | [place], [place] | | | | | [place] | | [address] | | | | | SURGERY | | Phone: | | | | | | | [phone] | | | | | | | Fax: | | | | | | | [phone] | +--------+ + + + + + [...] | [address] | Alyson Dumont [place], | | | | | Mailcode: [place] | [place] [address] | | | | | [facility] and | [phone] | | | | | [facility] [address] | | | | | | [place], [place] | | | | | | [address] | | | | | | [phone] | | | +--------+---------+ + + + [...] to do. The experts recommend the [place] to Quitting. o Call the [place] Tobacco Quitline at: 2-526-QUIT NOW or visit the website [email or web address]. A Quitline specialist will talk to you and help you decide the best way to quit. Th e Quitline may also be able to send you FREE medications. o For help online: Centers for Disease Control website at www.cdc.gov/tobacco or [facility] website for live on-line assistance for smokers at www.smokefree.gov [place] to Quitting These four keys can help withdrawal and help you successfully quit. 1. Set a specific date to quit. 2. Take the stop smoking medication your doctor recommends. 3. Get help and support from friends, family, and your health professional. 4. Learn how to stay quit. [place] to Quitting [place] 1: SET A QUIT [...] out internet quit sites. o Call the [place] Tobacco Quitline at 8-690-Isbd Now. [place] 4: LEARN HOW TO STAY [...] you are feeling withdrawal. Following the [place] to Quitting can help smokers make withdrawal [...] willing to stick with it! Developed by: [facility] Smoking Cessation Center [email or web address] 02/27/07 documented in this encounter Progress Notes Kelsea Ontiveros MD - 07/06/2011 12:49 PM PST COLON AND RECTAL SURGERY History and Physical New Patient Assessment: 61 y.o. male with elevated cholesterol, TIA's, and a hiatal hernia left ouxbzvy-ti-nka drainage of left perirectal abscess (05/2004) drainage [...] abscess was found. That was drained in [place], [place]. On 10/07/04, Dr. Eber Baxter performed [...] mucosa) Drainage of left perirectal abscess 05/2004 [place], [place] Drainage of left supralevator abscess, posterior midilne fistulectomy/seton placement posterior midline external opening, posterior midline internal opening, left rectal inter nal opening 4 cm above the dentate line, Dr. Baxter, [place], [place] Capsule endoscopy 05/2011 negative per patient Cholecystectomy, laparoscopic ~2003 or 2005 [place], [place] Allergies Allergen Reactions Celebrex (Celecoxib) TIA's [...] Referral patient, I spent 28 minutes of uyjb-kq-vimt time, of which more than half the [...] + +--------+ + + + | CT ANOSCOPY, DIAG | Routin | 08/11/2011 | [...]
[2019-03-29] MEDS ORDERED: TAMSULOSIN HCL0.4 MG PO (20:32)
[2019-03-29] MEDS ORDERED: FINASTERIDE5 MG PO (20:32)
[2019-03-29] MEDS ORDERED: NEXIUM20 MG PO (20:33)
[2019-03-29] MEDS ORDERED: LIALDA1.2 GM PO (20:33)
[2019-03-29] MEDS ORDERED: CHOLESTYRAMINE P4 GM PO (20:34)
--- NOTE | 2019-03-30 01:35 | NUR ---
PT ARRIVED VIA STRETCHER AND AMBULATED OVER TO THE BED. HE IS ON 1.5LNC AND RR RATE IS INCREASED. TUCKED PT IN AND ORIENTED TO THE ROOM. ADMISSION HX STARTED. CALL LIGHT IS CLOSE.
--- NOTE | 2019-03-30 02:33 | NUR ---
ASSESSMENT DONE. pt RESTING IN BED. PAIN 4/10 WHEN RESTING. INITIALLY REFUSED PAIN MEDICATION. EDUCATED ON PAIN MANAGEMENT. pt STOOD TO VOID, AND THEN REQUESTED PAIN MEDICATION FOR 6/10 PAIN. IV FLUIDS INFUSING PER ORDER. URINE DARK AND ORANGE IN COLOR. NO FURTHER REQUESTS AT THIS TIME. CALL LIGHT WITHIN REACH.
--- NOTE | 2019-03-30 05:27 | NUR ---
pt RESTED ON AND OFF. 1PA. IVF INFUSING. NPO. 1.5L O2 VIA NC. PAIN CONTROLLED WITH IV MEDS. DAILY ETOH. USES CALL LIGHT APPROPRIATLEY.
--- NOTE | 2019-03-30 06:36 | NUR ---
PT CALLED REQUESTING PAIN MEDICINE. ADMINISTERED 1MG DILUADID IV. PT DENIES FURTHER NEEDS AT THIS TIME. CALL LIGHT IS WITHIN REACH.
--- NOTE | 2019-03-30 07:17 | NUR ---
PT RESTNG SOUNDLY BEDSIDE REPORT RECEIVED
--- NOTE | 2019-03-30 08:51 | NUR ---
PT RESTING IN BED AGREES HE IS COMFORTABLE. STATES PAIN IS 3/10 REPORTS IT WAS 5/10 AT LAST MED REQUEST. 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
--- NOTE | 2019-03-30 11:05 | NUR ---
IN FOR PTS INITIAL CASE MANAGEMENT ASSESSMENT. PT REPORTS HE LIVES WITH HIS WITH NO ISSUES.
[2019-03-30] MEDS ORDERED: ATORVASTATIN CA20 MG PO (11:33)
--- NOTE | 2019-03-30 11:34 | NUR ---
PT HAS CONTINUED RESTING IN BED THIS SHIFT. REQUESTED PAIN MED FOR 5/10 ABDOMINAL PAIN, PAIN RESOLVED WITH DILAUDID. FAMILY MEMBER IN TO VISIT FOR A TIME. URINE IS DARK IN COLOR VOIDS 100ML AT A TIME IN THE URNIAL. FLUIDS CONTINUE TO INFUSE
--- NOTE | 2019-03-30 12:30 | NUR ---
2ND IV SITE ESTABLISHED TO ALLOW FLUIDS TO RUN WHILE POTASSIUM IS INFUSING. WELL TOLERATED BY PT. PT RECLINING IN BED, DENIES ANY PAIN AT THIS TIME. ORAL CARE AND PERSONAL ITEMS PROVIDED. LOW URINE OUTPUT REPORTED TO MD HE REQUESTS BLADDER SCAN. NO RESIDUAL FOUND SCANNED USING 2 DIFFERENT SCANNERS BOTH NEGATIVE
--- NOTE | 2019-03-30 13:11 | NUR ---
PT REQUESTING PAIN MEDICATION FOR ABD PAIN, 11/02, DENIES NAUSEA, DILAUDID 1MG IV GIVEN, DENIES FURTHER NEEDS.
--- NOTE | 2019-03-30 14:52 | EKG ---
[facility] [address] [place], [place] [address] Signed Sinus rhythm with occasional premature ventricular complexes Left axis deviation Abnormal ECG No previous ECGs available Confirmed by JAZ PAL DO ([id number]) on 03/30/2019 2:52:38 PM Electronically Signed By: JAZ PAL DO 03/30/19 1452 PATIENT NAME: OLVIN PATEL JR Electrocardiogram DATE OF : 50 PHYSICIAN: JAZ PAL DO REPORT #: [id number] REPORT IS CONFIDENTIAL AND NOT TO BE RELEASED WITHOUT AUTHORIZATION
[2019-03-30] MEDS ORDERED: ASPIR 8181 MG PO (16:36)
[2019-03-30] MEDS ORDERED: VITAMIN D-32000 UNIT PO (16:39)
[2019-03-30] MEDS ORDERED: MULTI VITAMIN1 EACH PO (16:39)
--- NOTE | 2019-03-30 16:40 | NUR ---
Medications reconciled using pharmacy records and patient interview
--- NOTE | 2019-03-30 18:28 | NUR ---
PT HAS HAD PAIN MEDS 3X THIS SHIFT FOR 5/10 PAIN EACH TIME. DILAUDID HAS WORKED WELL FOR HIM. FAMILY REMAIN IN ROOM PT AWAKE FOR A TIME THEN RESTS EYES CLOSED REPORTS SHORT NAPS THIS SHIFT AND POOR SLEEP THE NIGHT BEFORE. PERSONAL CARE ITEMS AVAILABLE PT DECLINED TO USE ANY WHEN UP TO TOILET EARLIER.
--- NOTE | 2019-03-30 20:00 | NUR ---
RECEIVED REPORT AT 1900, FOUND PT IN BED. PT NEEDED SOME PAIN MEDICATION AT THAT TIME. DAY RN DID GIVE IT.
--- NOTE | 2019-03-30 20:50 | NUR ---
SBA PT TO RR, SBA PT BK INTO BED,
--- NOTE | 2019-03-30 21:56 | NUR ---
ROUNDED CAHRGE. PATIENT IS RESTING IN BED WATCHING TV. PATIENT DENIES ANY COMMENTS, QUESTIONS OR CONCERNS. NO NEEDS NOTED. CALL LIGHT IN REACH.
--- NOTE | 2019-03-30 22:00 | NUR ---
V/S ARE WDL OVERALL, URINE OUTPUT IS STILL SOMEWHAT LOW BUT MD PAL IS AWARE. ALL LOBES ARE CLEAR, ABD SOUNDS ARE PRESENT BUT ABD IS TENDER TO TOUCH. PT STILL HAS INCREASE IN PAIN WHEN EATING ICE CHIPS SO FAR. LIVER PANEL HAS IMPROVED OVERALL WELL. NO NEW CONCERNS NOTED AT THIS TIME.
--- NOTE | 2019-03-30 22:12 | NUR ---
VITALS/I&Os DONE, GAVE FRESH ICE CHIPS,
--- NOTE | 2019-03-31 | NUR ---
PT IS SLEEPING.
--- NOTE | 2019-03-31 02:15 | NUR ---
PT IS IN NEED OF MORE PAIN MEDICATION. PRN DILAUDED TO BE GIVEN. OTHERWISE NO NEW CONCERNS WERE NOTED WITH SECOND ASSESSMENT. URINE IS STILL TEA COLORED.
--- NOTE | 2019-03-31 04:30 | NUR ---
PT AT THIS TIME IS SLEEPING. NO NEW CONCERNS NOTED AT THIS TIME.
--- NOTE | 2019-03-31 05:24 | NUR ---
PT OVERALL HAS HAD AN UNEVENTFUL NIGHT. V/S ARE WDL, PT HAS BEEN AFEBRILE SO FAR. ALL LOBES ARE CLEAR, NO PERIPHERAL EDEMA NOTED, ABD SOUNDS ARE PRENT, ABD IS SOMEWHAT FIRM AND TENDER TO TOUCH. PAIN INCREASES WITH ICE CONSUMPTION OF ICE CHIPS STATED BY HIM. URINE OUTPUT IS STILL LOW AND PT WOULD MAYBE BENEFIT FROM TAMULOSIN SINCE HE IS TAKING IT AT HOME. URINE IS VERY KERMIT IN COLOR. PER PT HIS LAST DRINK WAS ON 03/29/19. PT STATED THAT HE NEVER HAD DT'S WHILE HOSPITALIZED. PT DOES SEEM TO HAVE SOME ANXIOUS MOMENTS AT TIMES WHICH HE DESCRIBED "THINKING ABOUT STUFF FROM THE PAST" WHICH LEAVE HIM UNABLE TO SLEEP. NO OTHER CONCERNS NOTED AT THIS TIME.
--- NOTE | 2019-03-31 06:58 | NUR ---
TOOK VITALS AND I&Os, GOT PT FRESH ICE WATER
--- NOTE | 2019-03-31 07:15 | NUR ---
REPORT RECEIVED FROM LOLIS ADAMS. PT AWAKE AND RESTING IN BED. PT DENIES PAIN BUT REPORTS "MILD DISCOMFORT LIKE NAUSEA." PT STATES HE WOULD LIEK TO DRINK CLEAR LIQUIDS TODAY. PT UPDATED ON PLAN OF CARE. PT VERBALIZES UNDERSTANDING. CALL LIGHT WITHIN REACH. FAMILY AT BEDSIDE.
--- NOTE | 2019-03-31 08:48 | NUR ---
MORNING ASSESSMENT AND MEDICATIONS DUE. PT RESTING IN BED VISITING WITH FAMILY. PT REPORTS "I DONT' REALLY HAVE ANY PAIN BUT MAYBE SOME DISCOMFORT LIKE NASUEA." SEE MAR FOR MEDICATION GIVEN. ASSESSMENT DONE. LUNG SOUNDS CLEAR. PT WEANED TO ROOM AIR. O2 AT 95% ON ROOM AIR. PT UP TO USE RESTROOM. VOIDS 100ML DARK [place]ER[place] URINE. PT UP TO AMBULATE MULTIPLE LAPS IN [place]. SHOWER MATERIALS SET UP. PT STATES HE WILL SHOWER THIS MORNING. EDUCATION DONE WITH FAMILY AND PT REGARDING PANCREATITIS AND NPO STATUS. PT AND FAMILY VERBALIZE UNDERSTANDING. NO ADDITIONAL REQUESTS OR COMPLAINTS. CALL LIGHT WITHIN REACH.
--- NOTE | 2019-03-31 10:45 | NUR ---
THIS RN TO ROOM TO CHECK ON PT. PT REPORTS 4/10 DISCOMFORT. SEE MAR FOR MEDICATION. SBA UP TO RESTROOM. PT ANTICIPATING MD VISIT AND THEN WANTS TO SHOWER. NO ADDITIONAL REQUESTS OR COMPLAINTS AT THIS TIME. CALL LIGHT WITHIN REACH.
--- NOTE | 2019-03-31 12:15 | NUR ---
NOON ASSESSMENT DUE. PT RESTING IN BED AWAITING MD ROUNDS. FAMILY AT BEDSIDE. PT REPORTS 2/10 PAIN IN ABDOMEN ADN 3/10 HEADACHE. PT DENIES NEED FOR PAIN MEDICATION FOR ABDOMINAL PAIN BUT WOULD LIKE "SOMETHING FOR MY HEADACHE." PT DENIES DAILY COFFEE DRINKING. TYLENOL ORDER IS PO, CHARGE NURSE CONSULTED. STATES OK TO GIVE. TYLENOL GIVEN WITH SMALL SIP OF WATER. ZOFRAN GIVEN FOR NAUSEA. PT ANTICIPATING MD VISIT. UO CONTINUES TO BE INSUFFICIENT, DARK [place] IN COLOR. NO ADDITIONAL REQUESTS OR COMPLAINTS. CALL LIGHT WITHIN REACH. FAMILY AT BEDSIDE.
--- NOTE | 2019-03-31 13:57 | NUR ---
PT FINISHED WITH SHOWER. PT BACK TO BED. REPORTS NASUEA AND PAIN. SEE MAR FOR MEDICATIONS GIVEN. NEW FLUID BAG HUNG. ICE WATER PROVIDED. PT ADVISED TO GO SLOW WITH WATER. PT DEMONSTRATES UNERSTANDING. NO ADDITIONAL REQUESTS OR COMPLAINTS AT THIS TIME. CALL LIGHT WITHIN REACH.
--- NOTE | 2019-03-31 17:06 | NUR ---
AFTERNOON ASSESSMENT DUE. PT RESTING IN BED. PT REPORTS HE WAS ABLE TO DRINK THE FULL GLASS OF WATER AND "IT FEELS FINE." JELLO PROVIDED. PT TOELRATED WELL. CLEAR LIQUID TRAY ORDERED FOR DINER. ASSESSMENT DONE. PT REPORTS 2/10 PAIN AND DENIES NAUSEA. LUNG SOUND CLEAR. RIGHT SIDE OF BOWEL TONES ACTIVE. PT DENIES NEED FOR PAIN OR NAUSEA MEDICATION AT THIS TIME. ABX INFSUING. WATER REFILLED. PT DENIES ADDITIONAL REQUESTS OR COMPLAINTS AT THIS TIME. CALL LIGHT PARAMJIT NGUYEN. BED RAILS UP.
--- NOTE | 2019-03-31 17:29 | NUR ---
PT HERE FOR ACUTE PANCREATITIS. TOLERATING SBA WELL, INDEPENDANT SHOWER THIS SHIFT. PT WEANED TO ROOM AIR, O2 SATURTIONS ABOVE 92%. AMBULATION ENCORUAGED. EDUCATION DONE REGARDING PTS DIANOSIS AND PLAN OF CARE. PT ADVANCED TO CLEAR LIQUIDS, TOLERATING WITH MINIMAL NAUSEA AND PAIN. PRN NAUSEA AND PAIN MEDICAITONS GIVEN WITH GOOD RESULTS. GRAM NEGATIVE BACTERIA FOUND IN CULTURES. ADDITIONAL LABS DRAWN. IV ABX GIVEN. FLOWMAX RESTARTED, URINE OUTPUT REMAINS INSUFFICIENT, MD AWARE. PT AFEBRIAL THIS SHIFT. IV FLUID RATE DECREASED TO 125ML/HR. PT USES CALL LIGHT APPROPRIATLY.
--- NOTE | 2019-03-31 20:00 | NUR ---
RECEIVED REPORT AT 1900, FOUND PT IN BED AWAKE.
--- NOTE | 2019-03-31 20:00 | NUR ---
RECEIVED REPORT AT 1900, FOUND PT IN BED NEEDING PAIN MEDICATION. OTHERWISE PT HAD NO NEEDS OR CONCERNS.
--- NOTE | 2019-03-31 20:57 | NUR ---
ROUNDED CHARGE. PATIENT IS RESTING IN BED. PATIENT COMPLAINS OF PAIN AT A 5/10. PATIENT GIVEN PRN PAIN MEDICATION PER ORDER. PATIENT DENIES ANY FURTHER NEEDS AT THIS TIME. PATIENT DENIES ANY COMMENTS, QUESTIONS, OR CONCERNS. CALL LIGHT IN REACH.
--- NOTE | 2019-03-31 22:00 | NUR ---
V/S ARE WDL, LOBES ARE CLEAR, ABD SOUNDS ARE PRESENT AND PT STATED THAT HE HAS LESS "FULLNESS IN HIS STOMACH". PT TOLERATED HIS LIQUID DINNER TRAY WELL WITHOUT NAUSEA. ASSESSMENT OVERALL WAS UNREMARKABLE.
--- NOTE | 2019-04-01 00:30 | NUR ---
PT AT THIS TIME IS SLEEPING AT THIS TIME.
--- NOTE | 2019-04-01 01:37 | NUR ---
CALL LIGHT ANSWERED. IV ANTIBIOTIC INFUSION COMPLETE. IVF INFUSING WNL ORDERED. URINAL EMPTIED. PT C/O NELSON AND NECK PAIN, REQUESTING PRN TYLENOL. DISCUSSED AVAILABE PRN PAIN MEDICATIONS, STATES "I WILL WAIT UNTIL TYLENOL AVAILABLE, I CAN'T TAKE OXYCODONE." CALL LIGHT IN REACH. LIGHTS OFF IN ROOM.
--- NOTE | 2019-04-01 03:55 | NUR ---
MRI CONSENT HAS BEEN SIGNED. PT DOES HAVE HARDWEAR IN HIS NECK. HE WILL CALL HIS THIS MORNING FOR THE INFORMATION ABOUT THE MATERIAL USED. PT NEEDED SOME MORE TYLENOL FOR HIS HEADACHE WELL. ABD IS SOFTER THIS MORNING AND SOUNDS ARE PRESENT. PT HAS DENIED N/V AND ABD PAIN.NO NEW CONCERNS NOTED.
--- NOTE | 2019-04-01 06:15 | NUR ---
PT TOLERATED CLEAR LIQUID DIET WELL SO FAR. ABD IS MUCH SOFTER TO THE TOUCH AND LESS TENDER. URINE OUTPUT HAS INCREASED AND THE COLOR IS A BIT AIDS NURSE. OVERALL HIS ASSESSMENTS HAVE BEEN BENIGN. THE ONLY COMPLAINT THE PT HAD ALMOST ALL NIGHT WAS ABOT HIS HEADACHE. PT MAY NEED SOMETHING ADDITIONAL TO TYLENOL. MRI CONSENT HAS BEEN SIGNED BUT PT STATED THAT HE HAS "HARDWEAR' IN HIS CERVICAL SPINE. HE WILL CALL HIS AT 0700 TO FIND OUT IF IT IS TITANIUM OR SOME OTHER MATERIAL. PT STILL HAS NO SIGNS OF DT'S SO FAR. PERHAPS THE HEADACHE COULD BE ONE?... OTHER THAN THAT PT OVERALL LOOKS BETTER.
--- NOTE | 2019-04-01 07:20 | NUR ---
REPORT RECEIVED FROM LOLIS MANTILLA. PT UP AND AMBULATING IN HALLS. PT REPORTS HEART BURN AND WOULD LIKE MEDICATION. WILL CONSULT MD. PT DENIES ADDITIONAL REQUESTS OR COMPLAINTS AT THIS TIME. CONTINUES AMBULATING ARROUND [place].
--- NOTE | 2019-04-01 07:50 | NUR ---
MORNING ASSESSMENT AND MEDICATION DUE. PT REQUESTS PAIN MEDICATION, NAUSEA MEDICATION AND "SOMETHING FOR HEARTBURN." PT REPORTS MILD NAUSEA AND SAYS "BUT I USUALLY WOULD HAVE TAKEN 2 OMEPRAZOLES BY NOW." EDUCATION DONE WITH PT R/T MEDICATIONS. PT REPORTS 4/10 ABDOMINAL PAIN AND 3/10 HEADACHE PAIN. SEE MAR FOR MEDICATIONS GIVEN. ABDOMIN SOFTER THIS SHIFT. PT STATES HE FEELS LIKE HE IS TOLERATING THE CLEAR LIQUIDS "PRETTY WELL." MATERIALS FOR SHOWER SET UP. PT DENIES ADDITIONAL REQUESTS OR COMPLAINTS. CALL LIGHT WITHIN REACH.
--- NOTE | 2019-04-01 10:08 | NUR ---
PT UP TO AMBULATE IN [place]. TELLS THIS RN "THAT PAIN PILL DIDN'T DO A THING." PT BACK TO ROOM. REPORTS PAIN OF 6/10 IN ABDOMEN. PT STATES HEADACHE "IS GONE" PT ENCORUAGED TO REST AND SLOW DOWN ON FLUID INTAKE. DILAUDID GIVEN (SEE MAR). THAMINE GIVEN BY IV PIGGY BACK. PT RESTING IN BED. NO ADDITIONAL REQUESTS OR COMPLAINTS AT THIS TIME. AT BEDSIDE. CALL LIGHT WITHIN REACH.
--- NOTE | 2019-04-01 10:52 | NUR ---
THIS RN TO ROOM TO CHECK ON PT. PT RESTING IN BED, REPORTS 2/10 PAIN. PT STATES HE WANTS PAIN MEDICAITON BEFORE HE GOES FOR HIS SCAN. DENIES NEED FOR PAIN MEDICATION AT THIS TIME. THIAMINE INFUSION AND FLUSH COMPLETE. PIPERACILLIN INFUSION RESTARTED. WARM BLANKET PROVIDED. CALL LIGHT WITHIN REACH.
--- NOTE | 2019-04-01 11:24 | NUR ---
PATIENT SHOWEREDWITH , AMBULATED 2 LAPS AND DOWN TO THE POND, CURRENTLY IN ROOM
--- NOTE | 2019-04-01 12:33 | NUR ---
NOON ASSESSMENT AND MEDICAITON DUE. PT RESTING IN BED. PT STATES HE WENT FOR ANOTHER WALK. PT REQUESTS PAIN MEDICATION BEFORE GOING FOR THE MRI. PT ALSO REPORTS NAUSEA AND HAS DECIDED NOT TO HAVE CLEAR LIQUIDS FOR LUNCH TODAY. SEE MAR FOR MEDICATION GIVEN. ASSESSMENT DONE. BOWEL TONES HEARD. ABDOMEN SOFT. MINIMAL YELLOW COLORING TO SCLERA. PT DENIES ADDIITONAL REQUESTS OR COMPLAINTS. CALL LIGHT WITHIN REACH.
--- NOTE | 2019-04-01 12:56 | NUR ---
PIV SALINE LOCKED. PT TRANSFERES SELF TO WHEELCHAIR. PT TO IMAGING DEPARTMENT.
--- NOTE | 2019-04-01 14:04 | NUR ---
PT RETURNED FROM IMAGING. REPORTS 10/03 PAIN. SEE MAR FOR MEDICATION GIVEN. PT UP TO RESTROOM. VOIDS 250ML WITHOUT ISSUE. NO ADDITIONAL REQUESTS OR COMPLAINTS AT THIS TIME. CALL LIGHT WITHIN REACH.
--- NOTE | 2019-04-01 14:55 | NUR ---
DEPARTMENT COORDINATOR INFOMRED THIS RN THAT O2 SATURATION IS DOWN. THIS RN TO BEDSIDE. PT AWAKE AND TALKING WITH . O2 87% ON ROOM AIR. PT PLACED ON 1L O2 BY NC. O2 SATURATION RISES TO 94%. ICE WATER REFILLED. PT REPORTS 2/10 PAIN AND DENIES NEED FOR PAIN MEDICATIONS AT THIS TIME. NO ADDITIONAL REQUESTS OR COMPLAINTS. CALL LIGHT PARAMJIT NGUYEN. FAMILY AT BEDSIDE.
--- NOTE | 2019-04-01 16:42 | NUR ---
AFTERNOON ASSESSMENT DUE. PT RESTING IN BED. PT REPORTS 2/10 PAIN IN ABDOMEN AND DENIES NEED FOR PAIN MEDICATIONS. PT REPORTS 3/10 HEADACHE AND WOULD LIKE TYELNOL. SEE MAR FOR MEDICATIONS GIVEN. IV FLUID RATE DECREASED PER MD ORDER. ASSESSMENT DONE. BOWEL TONES HEARD. PT WEANED BACK TO ROOM AIR. TOLERATING WELL WITH O2 SATURATIONS ABOVE 92%. EDUCATION DONE WITH PT REGARDING ADVANCING DIET. PT VERBALIZES UNDERSTANDING. PT STATES HE DOES NOT WANT ANYTHING BUT CLEAR LIQUIDS FOR DINNER TONIGHT. TEA AND JELLO ORDERED PER PT REQUEST. WATER REFILLED. NO ADDITIONAL REQUESTS OR COMPLAINTS. PT WATCHING TV. CALL LIGHTIN PATRICK.
--- NOTE | 2019-04-01 17:40 | NUR ---
PT HERE FOR ACUTE PANCREATITIS. PT INDEPENDANT IN ROOM AND HALLWAY. PT ADVANCE TOLERATED BUT HAS ONLY WANTED CLEAR LIQUIDS THIS SHIFT. PRN PAIN AND NAUSEA MEDICATION GIVEN FOR ABDOMINAL PAIN AND HEADACHE. O2 DESATURATIONS NOTED WITH SLEEP AND PAIN MEDICAITONS. PT BRIEFLY ON 1L O2 BY NC WHILE SLEEPING, FOR O2 SATURATIONS IN THE MID 80'S, OTHERWISE ON ROOM AIR. URINE OUTPUT INCREASING, PT NOW QUANTITY SUFFICIENT. IV FLUID RATE DECREASED TO 75ML/HR. MRI TODAY, RESULTS PENDING. NIA DC'D R/T PLATELET COUNT. FAMILY AT BEDSIDE INTERMITTANTLY. PT USES CALL LIGHT APPROPRIATLY.
--- NOTE | 2019-04-01 18:06 | NUR ---
THIS RN TO ROOM TO CHECK ON PT. PT REPORTS HEADACHE HAS RESOLVED AND STATES ABDOMINAL PAIN AT A 2/10 AND "IS THE BEST IT'S BEEN." PT EATING JELLO. IV ABX INFUSION COMPLETE. NO ADDITIONAL REQUESTS OR COMPLAINTS AT THIS TIME. CALL LIGHT WITHIN REACH.
--- NOTE | 2019-04-01 18:29 | NUR ---
PATIENT IN BED RESTING. O2 LEVELS DOWN ON ROOM AIR, PATIENT BUT OXYGEN BACK ON AT 2L AND STATS WENT UP TO 92, RN NOTIFIED. CALL LIGHT IN REACH. NO FURTHER NEEDS AT THIS TIME.
--- NOTE | 2019-04-01 20:00 | NUR ---
RECEIVED REPORT AT 1900, FOUND PT IN BED WATCHING TV. PT WAS IN NEED OF PAIN MEDICATION. WILL TRY OUT PO DILAUDED 4MG AND SEE HOW THIS WORKS FOR HIM. OTHERWISE PT HAD NO OTHER CONCERNS OR NEEDS. PT OVERALL LOOKS MUCH BETTER THIS EVENING.
--- NOTE | 2019-04-01 22:00 | NUR ---
V/S ARE WDL. ALL LOBES ARE CLEAR, ABD SOUNDS ARE PRESENT AND ABD IS SOFT TO TOUCH. NO PERIPHERAL EDEMA NOTED. PT DENIES HEADACHE. URINE OUTPUT IS ADEQUATE NOW AND COLOR LOOKS MUCH BETTER. PT TO STAY ON 2L O2 NC WHILE SLEEPING. NO NEW CONCERNS NOTED AT THIS TIME.
--- NOTE | 2019-04-02 | NUR ---
PT IS SLEEPING AT THIS TIME. NO NEW CONCERNS NOTED.
--- NOTE | 2019-04-02 02:00 | NUR ---
PT AT THIS TIME IS SLEEPING. PO DILAUDED SEEMS TO HAVE WORKED WELL. PT HAS NOT COMPLAINED OF PAIN SINCE START OF SHIFT.
--- NOTE | 2019-04-02 02:26 | NUR ---
PT AT THIS TIME IS ON 1L O2 VIA PEDS OXY MASK SINCE HIS O2 SATS HAVE REMAINED IN THE UPPER 80'S WHILE SLEEPING. PT DID WAKE UP AND STARTED COUGHING WHICH SEEMS TO HAVE TRIGGERED A BRONCHO SPASM. RT IS IN ROOM NOW GIVING A PRN NEB. WILL CONTINUE TO MONITOR.
--- NOTE | 2019-04-02 04:07 | NUR ---
AT AROUND 0330 PT NEEDED SOME MORE PRN PO DIALUDED 4MG FOR PAIN. SECOND ASSESSMENT WAS UNCHANGED FROM THE FIRST. PT BACK TO SLEEP. PT DOES NEED 2L O2 NC WHILE SLEEPING FOR NOW.
--- NOTE | 2019-04-02 06:05 | NUR ---
PT OVERALL HAD A GOOD NIGHT. PAIN WAS WELL CONTROLLED WITH PO DILAUDED 4MG. PT NEEDED IT X2 THIS SHIFT. ASSESSMENTS WERE ALL WDL OVERALL, URINE OUTPUT IS VERY GOOD, V/S OVERALL ARE WDL. PT IS WILLING TO ADVANCE HIS DIET SOME THIS MORNING FOR BREAKFAST. NO NEW CONCERNS NOTED THIS SHIFT SO FAR.
--- NOTE | 2019-04-02 07:41 | NUR ---
PT REQUESTING TO TAKE SHOWER. MEMBER OF TECHNICAL STAFF IN ROOM PREPARING SHOWER ROOM. PT IS ON RA, RESP EVEN AND NON LABORED. PT DENIES NEEDS AT THIS TIME. CALL LIGHT WITHIN REACH. NO NEEDS AT THIS TIME.
--- NOTE | 2019-04-02 07:55 | NUR ---
PATIENT SITTING UP IN BED. IV WRAPPED. SETS UP BATHROOM FOR SHOWER. LINENS CHANGED. CALL LIGHT WITHIN REACH. NO OTHER NEEDS AT THIS TIME
--- NOTE | 2019-04-02 09:18 | NUR ---
PATIENT RESTING IN BED. VITAL SIGNS AND I&O DONE. PATIENT COMPLAINS ABOUT PAIN. RN NOTIFIED. CALL LIGHT WITHIN REACH. NO OTHER NEEDS AT THIS TIME
--- NOTE | 2019-04-02 09:28 | NUR ---
ADMIN DILAUDID 4MG PO FOR REPORTS OF 6/10 ABD PAIN.
--- NOTE | 2019-04-02 13:30 | NUR ---
PATIENT RESTING IN BED. VITAL SIGNS AND I&O DONE. PATIENT COMPLAINS ABOUT PAIN AND ASKS FOR PAIN MEDICATION. RN NOTIFIED. CALL LIGHT WITHIN REACH. NO OTHER NEEDS AT THIS TIME
--- NOTE | 2019-04-02 15:09 | NUR ---
BATHROOM CLEANED. PT A&OX4. PT DENIES NEEDS AT THIS TIME. ENCOURAGED PT TO CALL STAFF IF THERE ARE ANY MEEDS. PT VERBALIZED HE WOULD DO SO.
--- NOTE | 2019-04-02 15:11 | NUR ---
PATIENT AMBULATING IN THE HALLWAY.
--- NOTE | 2019-04-02 17:20 | NUR ---
PT IN BED, APPEARS TO BE SLEEPING, RESP EVEN AND NON LABORED. PT HAS NO DISTRESS NOTED.
--- NOTE | 2019-04-02 18:02 | NUR ---
PATIENT RESTING IN BED. VITAL SIGNS AND I&O DONE. CALL LIGHT WITHIN REACH. NO OTHER NEEDS AT THIS TIME
--- NOTE | 2019-04-02 18:02 | NUR ---
ADMIN DILAUDID 1MG IVP AND ZOFRAN 4MG IVP FOR REPORTS OF UPSET STOMACH AND 6/10 ABD PAIN.
--- NOTE | 2019-04-02 19:08 | NUR ---
IN ROOM FOR REPORT, PT IS RESTING WITH EYES CLOSED, RR IS EVEN AND NONLABORED. CALL LIGHT IS CLOSE.
--- NOTE | 2019-04-02 21:30 | NUR ---
IN ROOM TO ASSESS PT AND ADMINISTER MEDICATIONS. PT REPORTS IV DILAUDID HELPS WITH PAIN THE BEST AND ZOFRAN TO AVOID NAUSEA/UPSET STOMACH. PT DENIES OTHER NEEDS AT THIS TIME. CALL LIGHT IS WITHIN REACH.
--- NOTE | 2019-04-02 22:50 | NUR ---
PT IS RESTING WITH EYES CLOSED, RR IS EVEN AND NONLABORED. CALL LIGHT IS WITHIN REACH.
--- NOTE | 2019-04-02 23:45 | NUR ---
PT'S IV WAS BEEPING AND NOW IS INFUSING FINE. PT IS REQUESTING PAIN MEDS FOR ABD PAIN. ADMINISTERED DILAUDID AND PT DENIES FURTHER NEEDS. CALL LIGHT IS CLOSE.
--- NOTE | 2019-04-03 01:42 | NUR ---
PT'S IV WAS BEEPING, IV ABX WAS COMPLETE. PT DENIES NEEDS AT THIS TIME. CALL LIGHT IS WITHIN REACH.
--- NOTE | 2019-04-03 03:08 | NUR ---
CALL LIGHT ANSWERED, PT REQUESTING IV PAIN MEDICATION. PRIMARY RN NOTIFIED. PAIN 09/02 IN RUQ. STATES HE HAS BEEN SITTING AWAKE THINKING ABOUT IT. PRN PAIN MEDICATION ADMINISTERED WNL. IV SL. URINAL EMPTIED. ICE WATER PROVIDED. CALL LIGHT IN REACH.
--- NOTE | 2019-04-03 04:15 | NUR ---
PT IS RESTING WITH EYES CLOSED, RR IS EVEN AND NONLABORED. CALL LIGHT IS WITHIN REACH.
--- NOTE | 2019-04-03 05:44 | NUR ---
IN ROOM TO ADMINISTER MEDICATIONS AND ASSESS PT. WE TALKED ABOUT COUGHING AND DEEP BREATHING WELL USING IS BECAUSE HIS O2 WAS 89% ON RA. AFTER COUGHING AND DEEP BREATHING IT INCREASED TO 91%. WE ALSO DISCUSSED WALKING MORE. PT DENIES FURTHER NEEDS AT THIS TIME. CALL LIGHT IS CLOSE, IV ABX INFUSING.
--- NOTE | 2019-04-03 06:32 | NUR ---
PT IS ON A REGULAR DIET BUT IS TAKING IT EASY DUE TO PAIN WITH EATING. HE IS INDEPENDENT IN THE ROOM. PT IS TAKING DILAUDID FOR PAIN. IV IS SL BETWEEN ZOSYN INFUSIONS.
--- NOTE | 2019-04-03 07:15 | NUR ---
REPORT RECEIVED FROM LOLIS BEAN. PT UP AND AMBULATING IN HALLS. PT REQUESTS STOMACH ACID MEDICAITON AND PAIN MEDICAITON FO 09/02 PAIN. TEA AND APPLE SAUCE ORDERED PER PT REQUEST FOR BREAKFAST. NO ADDITIONAL REQUESTS OR COMPLAINTS, CALL LIGHT WITHIN REACH.
--- NOTE | 2019-04-03 08:00 | NUR ---
PYTHON ENGINEER REQUESTED TO GIVE PAIN MEDICAITONS AND STOMACH ACID MEDICATION.
--- NOTE | 2019-04-03 08:40 | NUR ---
PT AMBULATING IN [place]. PT REPORTS 4/10 PAIN AND STATES HE DID NOT RECIEVE PAIN MEDICATIONS. SEE MAR FOR MEDICATION GIVEN. TEA AND APPLE SAUCE PROVIDED. CALL LIGHT WITHIN REACH.
--- NOTE | 2019-04-03 09:56 | NUR ---
PT UP AMBULATING IN [place], HE JUST NEEDED OUT OF THE RM. HE HAS HIS IV POLE AND SEEMS TO BE NAVIGATING IT WELL. PLEASANT CONVERSATION, MENTIONED TO CHOCOLATE REFINING ROLLER THAT HE DIDN'T GET ICED TEA WITH HIS MEAL. HE SAID HE WAS OK. WILL FOLLOW NEEDED
--- NOTE | 2019-04-03 09:58 | NUR ---
MORNING ASSESSMENT DUE. PT AMBULATING AGAIN IN [place]. PT BACK TO ROOM. ASSESSMENT DONE. HYPERACTIVE BOWEL TONES. PT DENIES BOWEL MOVEMENTS THIS MORNING. PT REPORS 1/10 PAIN AND DENIES NEED FOR ADDITIONAL MEDICATION AT THIS TIME. PT TOLERATING TEA AND APPLESAUCE FOR BREAKFAST. PIV SALINE LOCKED FOR SHOWER. PT DENIES NAUSEA. NO ADDITIONAL REQUESTS OR COMPLAINS AT THIS TIME. CALL LIGHT WITHIN REACH. PT UP TO SHOWER.
--- NOTE | 2019-04-03 11:13 | NUR ---
PT CALL LIGHT ON. PT FINISHED WITH SHOWER AND REQUESTS PAIN MEDICATION. EDUCATION DONE WITH PT REGARDING ORAL V.S. IV PAIN MEDICATIONS. PT VERBAZLIES UNDERSTANDING BUT STATES HE WANTS THE IV PAIN MEDICATION. SEE MAR FOR MEDICATION GIVEN. PLAN MADE WITH PT TO TRANSITION TO ORAL PAIN MEDICATIONS TODAY. PT VISITING WITH . UP TO WALK IN HALLS AGAIN. NO ADDITIONAL REQUESTS OR COMPLAINTS AT THIS TIME. CALL LIGHT WITHIN REACH.
--- NOTE | 2019-04-03 11:55 | NUR ---
NOON ASSESSMENT DUE. PT REPORTS 2/10 PAIN AND DENIES NEED FOR PAIN MEDICATION. PT ANTICIPATING LUNCH AND STATES HE FEELS "MUCH BETTER." ASSESSMENT DONE. BOWEL TONES ACTIVE. PT VISITING WITH FRIEND. NO ADDITIONAL REQUESTS OR COMPLAINTS AT THIS TIME. CALL LIGHT WITHIN REACH.
--- NOTE | 2019-04-03 13:17 | NUR ---
PT CALL LIGHT ON. PT REQUESTS PAIN MEDICATION AND A WARM BLANKET. WARM BLANKET PROVIDED. PT REPORTS 2/10 PAIN AND AGREES TO TRY ORAL PAIN MEDICATION. PT STATES "I FEEL REALLY GOOD." PT ATE 100% OF LUNCH AND STATES "THIS IS THE BEST I'VE BEEN." VITALS TAKEN. I/O RECORDED. NO ADDITIONAL REQUESTS OR COMPLAINTS AT THIS TIME. CALL LIGHT WITHIN REACH.
--- NOTE | 2019-04-03 14:23 | NUR ---
ABX DUE. GIVEN ORDERED (SEE MAR). PT VISITING WITH FRIEND. PT REPORTS / PAIN. NO ADDITIONAL REQUESTS OR COMPLAINTS AT THIS TIME. CALL LIGHT WITHIN REACH.
--- NOTE | 2019-04-03 16:54 | NUR ---
PT HERE FOR ACUTE PANCREATITS. PT INDEPENDANT IN ROOM AND UP TO AMBULATE IN HALLS MULTIPLE TIMES. PRN IV PAIN MEDICAITON TAPERED, PT NOW ON ORAL PAIN MEDICAITONS WITH PAIN WELL CONTROLED THIS SHIFT. O2 SATURATIONS ABOVE 92% ON ROOM AIR. PT TOLERATING MORE PO INTAKE INCLUDING SALMON, SHERBERT, AND STRAWBERRY SHORTCAKE. IV ABX GIVEN THIS SHIFT. VOIDING QUANTITY SUFFICIENT. PT USES CALL LIGHT APPROPRIATLY.
--- NOTE | 2019-04-03 17:09 | NUR ---
AFTERNOON ASSESSMENT AND MEDICATION DUE. PT UP AND AMBULATING IN HALLS X4 LAPS. PT STATES HE ATE SALMON AND SHERBERT FOR DINNER AND HAS NO NAUSEA BUT 3/10 PAIN. SEE MAR FOR MEDICAITONS GIVEN. ASSESSMENT DONE. NO CHANGES NOTED. PT BACK TO BED TO REST. WARM BLANKETS PROVIDED. PT DEMONSTRATES USE OF I.S. REACHING 1999. NO ADDITIONAL REQUESTS OR COMPLAINTS AT THIS TIME. CALL LIGHT WITHIN REACH.
--- NOTE | 2019-04-03 18:17 | NUR ---
VITALS/I&Os RECORDED, GOT PT FRESH ICE WATER,
--- NOTE | 2019-04-03 18:44 | NUR ---
THIS RN TO ROOM TO CHECK ON PT. PT REPORTS 1/10 PAIN AND STATES "I'M DOING REALLY WELL." PT PLANNING BREAKFAST ORDER. NO ADDITIONAL REQUESTS OR COMPLAINTS AT THIS TIME. CALL LIGHT WITHIN REACH.
--- NOTE | 2019-04-03 19:20 | NUR ---
CHARGE NURSE REPORT RECEIVED FROM TINA. MONTALVO WITH NO NEEDS AT THIS TIME.
--- NOTE | 2019-04-03 19:23 | NUR ---
IN ROOM FOR REPORT, PT IS AWAKE IN ROOM. HE DENIES NEEDS AT THIS TIME, CALL LIGHT IS CLOSE.
--- NOTE | 2019-04-03 21:17 | NUR ---
IN ROOM TO ADMINISTER MEDICATIONS AND ASSESS PT. HE REPORTS PAIN IS WELL CONTROLLED WITH PO DILAUDID IF HE STAYS ON TOP OF IT, OTHERWISE IT GETS OUT OF CONTROL QUICK. HIS APPETITE HAS IMPROVED. HE DENIES NEEDS AT THIS TIME CALL LIGHT IS WITHIN REACH.
--- NOTE | 2019-04-03 22:45 | NUR ---
vitals/I&Os recorded, gave pt fresh ice water,
--- NOTE | 2019-04-03 23:54 | NUR ---
PT IS RESTING WITH EYES CLOSED, RR IS EVEN AND NONLABORED. CALL LIGHT IS CLOSE.
--- NOTE | 2019-04-04 00:36 | NUR ---
PT WOKE UP AND WAS HAVING TROUBLE GETTING BACK TO SLEEP. HE IS WALKING THE HALLS AT THIS TIME. HE DENIES NEEDS.
--- NOTE | 2019-04-04 01:15 | NUR ---
IN ROOM TO ADMINISTER PO DILAUDID. PT REPORTS THAT IF HE TAKES IT EVERY 4 HOURS HIS PAIN STAYS UNDER CONTROL. HE WANTS TO TRANSITION TO 1 PILL IN THE MORNING TO SEE HOW HE DOES. HE DENIES FURTHER NEEDS AT THIS TIME. FRESH ICEWATER IS AT BEDSIDE AND PT DENIES FURTHER NEEDS.
--- NOTE | 2019-04-04 03:15 | NUR ---
PT IS RESTING WITH EYES CLOSED, RR IS EVEN AND NONLABORED. CALL LIGHT IS CLOSE.
--- NOTE | 2019-04-04 06:17 | NUR ---
IN ROOM TO ADMINISTER IV ABX AND PO DILAUDID. PT DENIES FURTHER NEEDS AT THIS TIME. CALL LIGHT IS WITHIN REACH.
--- NOTE | 2019-04-04 07:30 | NUR ---
PATIENT INDEPENDENT IN ROOM, AMBULATED TO TOILET, VOIDING WELL. REPORTS PAIN OF 2, WHICH IS TOLERABLE. IV ABX INFUSING AT 28 MLS/HR. BREAKFAST ORDERED, DISCUSSED POC. NO FURTHER NEEDS AT THIS TIME, CALL LIGHT WITHIN REACH.
--- NOTE | 2019-04-04 07:51 | NUR ---
PATIENT RESTING IN BED. PATIENT'S BREAKFAST ORDERED. CALL LIGHT WITHIN REACH. NO OTHER NEEDS AT THIS TIME
--- NOTE | 2019-04-04 08:15 | NUR ---
PATIENT SITTING UP IN BED TAKING HIS BREAKFAST. SETS UP BATHROOOM FOR SHOWER. CALL LIGHT WITHIN REACH. NO OTHER NEEDS AT THIS TIME
--- NOTE | 2019-04-04 08:38 | NUR ---
PATIENT AMBULATING IN THE HALLWAY
--- NOTE | 2019-04-04 08:51 | NUR ---
AM MEDICATIONS GIVEN, TOLERATED WELL. PATIENT SALINE LOCKED, AMBULATING HALLWAYS. PATIENT TO SHOWER. REPORTS SLIGHT NAUSEA BUT NO INTERVENTIONS NEEDED. PRN TYLENOL GIVEN. NO FURTHER NEEDS AT THIS TIME, CALL LIGHT WITHIN REACH.
--- NOTE | 2019-04-04 09:40 | NUR ---
PATIENT RESTING IN BED. VITAL SIGNS AND I&O DONE. WARM BLANKETS PROVIDED. ICE WATER GIVEN. CALL LIGHT WITHIN REACH. NO OTHER NEEDS AT THIS TIME
--- NOTE | 2019-04-04 10:34 | NUR ---
PATIENT SITTING IN BED WITH FAMILY AT BEDSIDE. PAIN REASSESSMENT COMPLETE, DENIES PAIN. NO FURTHER NEEDS AT THIS TIME, CALL LIGHT WITHIN REACH.
--- NOTE | 2019-04-04 12:36 | NUR ---
PATIENT REPORTS PAIN OF 3/10, PRN PAIN MEDICATION GIVEN. 90% OF LUNCH EATEN, NO NAUSEA REPORTED. WATER AND ICE TEA REFRESHED. VOIDED 400 MLS. IV SALINE LOCKED. NO FURTHER NEEDS AT THIS TIME, CALL LIGHT WITHIN REACH.
--- NOTE | 2019-04-04 13:04 | NUR ---
PATIENT RESTING IN BED. VITAL SIGNS AND I&O DONE. CALL LIGHT WITHIN REACH. NO OTHER NEEDS AT THIS TIME
--- NOTE | 2019-04-04 13:30 | NUR ---
pt reoprts pain 08/05. out to ambulate in halls. abx started. denies needs. call light in reach.
--- NOTE | 2019-04-04 13:54 | NUR ---
PT AMBULATING IN [place], ADMITTED THAT HE IS FEELING SO MUCH BETTER-BUT THE PEPPER ARE CLOSING IN ALITTLE. PT SEEMS TO BE VERY COMPLIANT WITH STAFF RECOMMENDATIONS. WILL CONTINUE TO FOLLOW NEEDED
--- NOTE | 2019-04-04 16:40 | NUR ---
PATIENT SITTING UP IN BED WATCHING TV. IV ABX INFUSING, DINNER DELIVERED. PRN PAIN MEDICATION GIVEN, WELL PM MEDICATIONS. WATER REFRESHED, DENIES FURTHER NEEDS AT THIS TIME. CALL LIGHT WITHIN REACH.
--- NOTE | 2019-04-04 17:11 | NUR ---
PATIENT RESTING IN BED. VITAL SIGNS AND I&O DONE. CALL LIGHT WITHIN REACH. NO OTHER NEEDS AT THIS TIME
--- NOTE | 2019-04-04 21:31 | NUR ---
AMBULATED HALLWAY EARLIER, TOLERATED WELL, C/O 09/02 ABD PAIN, MEDICATED WITH DILAUDID 2MG PO. NO OTHER C/O. NO N/V. COOP WITH ASSESSMENT,SL INTACT. IV ABX INFUSING. CALL LIGHT AND FLUIDS AT BEDSIDE, USES URINAL, VOIDING QS YELLOW URINE.
--- NOTE | 2019-04-04 23:36 | NUR ---
RESTING, EYES CLOSED, IV ABX INFUSING, ON ROOM AIR, NO DISTRESS. CALL LIGHT AT BEDSIDE
--- NOTE | 2019-04-05 01:25 | NUR ---
PT C/O 09/02 ABD PAIN. MEDICATED WITH DILAUDID 2MG PO. USING URINAL, VOIDED LARGE AMOUNTS OF CLEAR URINE. FRESH WATER GIVEN ON REQUEST, CALL LIGHT AT BEDSIDE
--- NOTE | 2019-04-05 04:08 | NUR ---
Resting, eyes closed, no resp distress. fluids and call light at bedside, no n/v,
--- NOTE | 2019-04-05 05:07 | NUR ---
PT CURRENTLY RESTING, EYES CLOSED, NO RESP DISTRESS NOTED. HAS BEEN MEDICATED 2X WITH DILSUID 2MG EACH TIME PER ABD PAIN WITH GOOD PAIN RELIEF. NO ADVERSE REACTION TO IV ABX NOTED OR STATED. WALKED UP AND DOWN HALLWAYS SEVERAL TIMES AT BEGINING OF SHIFT. NO N/V, LAST BM 2-3 DAYS AGO. EDA. VOIDING QS. PLEASANT AND COOPERATIVE. FLUIDS AND CALL LIGHT AT BEDSIDE
--- NOTE | 2019-04-05 05:35 | NUR ---
pt awake, watching tv, c/o abd pain 09/02 medicated with Dilaudid 2mg po and Tylenol 500mg po . Pt walking hallways up-down-and around nursing station. Tolerated well. WArm coffee given on request. Tolerating fluids well. IV abx infusing. Call light at bedside
--- NOTE | 2019-04-05 07:39 | NUR ---
REPORT RECEIVED. ORDERS ACKNOWLEDGED.
--- NOTE | 2019-04-05 07:50 | NUR ---
PATIENT SITTING UP ON THE EDGE OF THE BED TAKING HIS BREAKFAST. SETS UP BATHROOM FOR SHOWER. CALL LIGHT WITHIN REACH. NO OTHER NEEDS AT THIS TIME
--- NOTE | 2019-04-05 08:06 | NUR ---
PATIENT SITTING UP IN BED WATCHING TV. AM MEDICATIONS GIVEN. IV ABX RUNNING AT 28 MLS/HR. ASSESSMENT COMPLETE. NO FURTHER NEEDS AT THIS TIME, CALL LIGHT WITHIN REACH.
--- NOTE | 2019-04-05 09:39 | NUR ---
PATIENT RESTING IN BED. IN ROOM. VITAL SIGNS AND I&O DONE. CALL LIGHT WITHIN REACH. NO OTHER NEEDS AT THIS TIME
--- NOTE | 2019-04-05 10:34 | NUR ---
PATIENT AMBULATING IN THE HALLWAY
--- NOTE | 2019-04-05 13:34 | NUR ---
PATIENT SITTING UP IN BED WATCHING TV. IV ABX HUNG AT 28 MLS/HR. DENIES FURTHER NEEDS AT THIS TIME, CALL LIGHT WITHIN REACH.
--- NOTE | 2019-04-05 13:39 | NUR ---
PATIENT RESTING IN BED. RN IN ROOM. VITAL SIGNS AND I&O DONE. ICE WATER AND COFFEE GIVEN. CALL LIGHT WITHIN REACH. NO OTHER NEEDS AT THIS TIME
--- NOTE | 2019-04-05 16:41 | NUR ---
PATIENT SITTING UP IN BED WATCHING TV. ASSESSMENT COMPLETE, IV ABX CONTINUES INFUSING. NO FURTHER NEEDS AT THIS TIME, CALL LIGHT WITHIN REACH.
--- NOTE | 2019-04-05 17:08 | NUR ---
PATIENT RESTING IN BED. VITAL SIGNS AND I&O DONE. ICE WATER GIVEN. CALL LIGHT WITHIN REACH. NO OTHER NEEDS AT THIS TIME
--- NOTE | 2019-04-05 18:26 | NUR ---
PATIENT AMBULATING IN THE HALLWAY
--- NOTE | 2019-04-05 21:48 | NUR ---
in bed, coop with assessment, medicated with dilauid 2mg po c/o 09/02 abd pain. on room air. 2 SL patent. IV abx infusing, tolerating well. walking in room independently. no n/v. tolerating fluids and diet. Call velazquez and fresh water at hands reach
--- NOTE | 2019-04-05 21:51 | NUR ---
vitals and I&Os done
--- NOTE | 2019-04-06 00:02 | NUR ---
EYES CLOSED, NO DISTRESS, IV ABC INFUSING. CALL LIGHT AT BEDSIDE
--- NOTE | 2019-04-06 01:49 | NUR ---
Medicated with Dilaudid 2mg po c/o 09/02 abd pain. Tolerated iv abx well. Has slept this shift. Call light and fresh fluids at bedside
--- NOTE | 2019-04-06 05:13 | NUR ---
SBA PT ON TO STANDING SCALE, PT RESUMED WALKING MED/SURG HALLWAY BEFORE RETURNING TO ROOM
--- NOTE | 2019-04-06 05:49 | NUR ---
PT CURRENTLY AWKE, WATCHING TV. HAS BEEN MEDICATED 3X WITH DILAUDID 2MG PO AND TYLENOL 500MG PO X1 PER ABD PAIN WITH GOOD PAIN RELIEF. NO N/V. TOLERATING FLUIDS AND DIET WELL. NO C/O ADVERSE REAFCTION TO IV ABX. 2 SL INTACT. HAS EMBULATED HALLWAYS SEVERAL TIMES. VOIDING QS. HAD SMALL FORMED BM THIS AM. FLUIDS AND CALL LIGHT AT BEDSIDE
--- NOTE | 2019-04-06 08:09 | NUR ---
PATIENT RESTING IN BED, WATCHING TV. PATIENT STATED HE ALREADY WASHED HIS HANDS AND FACE, PERFORMED ORAL CARE AND AM CARE IN THE BATHROOM THIS MORNING. PATIENT REQUESTED COFFEE AND STATED HE SLEPT WELL LAST NIGHT AND IS READY TO GO HOME. CALL LIGHT IN REACH. NO OTHER NEEDS AT THIS TIME.
--- NOTE | 2019-04-06 08:58 | NUR ---
DISCUSSED WITH PATIENT FOLLOW UP APPOINTMENT. PATIENT DID NOT RECIEVE A CALL FROM [facility], PATIENT TO MAKE APPOINTMENT ON MONDAY
[2019-04-06] MEDS ORDERED: AMOX TR-K CLV1 EAC3 PO (09:11)
--- NOTE | 2019-04-06 10:06 | NUR ---
PATIENT RESTING IN BED, WAITING FOR DISCHARGE INSTRUCTIONS. CALL LIGHT IN REACH. NO OTHER NEEDS AT THIS TIME.
--- NOTE | 2019-04-06 10:10 | NUR ---
PATIENT SITTING UP IN BED WATCHING TV. DISCUSSED POC AND DISCHARGE. IV SITES PATENT. ASSESSMENT COMPLETE. PATIENT DENIES ANY NEEDS AT THIS TIME, CALL LIGHT WITHIN REACH.
--- NOTE | 2019-04-06 10:28 | NUR ---
REPORT RECEIVED BY RN.
[2019-04-06] MEDS ORDERED: AUGMENTIN 875-1 EACH PO ×2 (10:51→10:52)
[2019-04-06] MEDS ORDERED: HYDROMORPHONE HC2 MG PO (11:02)
--- NOTE | 2019-04-06 11:40 | NUR ---
DISCHARGE INFORMATION GIVEN. PATIENT EDUCATED ON IMPORTANCE OF AVOIDING ALCOHOL AND FOLLOWING A LOW-FAT DIET. PATIENT AGREEABLE. ALL QUESTIONS AND CONCERNS ANSWERED. PATIENT VERBALIZED UNDERSTANDING OF FOLLOW-UP APPOINTMENT. ALL BELONGINGS COLLECTED. PATIENT LEAVES UNIT AMBULATORY WITH AND NURSING PERSONNEL.
[2019-07-03] MEDS ORDERED: OXYBUTYNIN CHLO10 MG PO (13:25)
[2019-07-03] MEDS ORDERED: IMODIUM A-D2 M2 PO (13:25)
== END 2019-04-06 11:33 | disposition home or self-care (01) | DRG 871 ==
LOC: ED 20:10 → MS 20:12
PROVIDERS: ADMIT Student in an Organized Health Care Education/Training Program
DX: A41.59 Other Gram-negative sepsis (principal); K85.90 Acute pancreatitis without necrosis or infection, unspecified; K50.90 Crohn's disease, unspecified, without complications; E78.5 Hyperlipidemia, unspecified; K21.9 Gastro-esophageal reflux disease without esophagitis; N40.0 Benign prostatic hyperplasia without lower urinary tract symptoms; K70.10 Alcoholic hepatitis without ascites; D69.6 Thrombocytopenia, unspecified; N28.1 Cyst of kidney, acquired; K86.89 Other specified diseases of pancreas; Z79.899 Other long term (current) drug therapy; Z79.82 Long term (current) use of aspirin; Z87.891 Personal history of nicotine dependence; Z88.1 Allergy status to other antibiotic agents; Z88.8 Allergy status to other drugs, medicaments and biological substances
CPT/HCPCS: 36415; 71045; 74177; 74183; 80048; 80053; 80076; 80176; 81001; 82150; 82977; 83615; 83690; 83735; 83880; 84100; 84478; 84484; 85025; 85384; 85610; 87040; 87077; 87186; 93005; 93010; 94760; 96374; 96375; 96376; 99285-25; A9579; C9113; G0480; J0131; J0780; J1170; J1650; J2405; J2543; J3411; J3475; J3480; J7030; J7060; J7120

== ENCOUNTER 2019-07-10 05:50 | Day surgery (SDC) | payer MEDICARE, OTHER ==
[~2019-07-10] VITALS: Ht 180.3 cm; Wt 97.5 kg
--- NOTE | ~2019-07-10 | OR ---
[facility] [address], [place] [address] Draft DATE OF OPERATION: 07/10/2019 SURGEON: Rod Urbano DPM PREOPERATIVE DIAGNOSES: 1. Hallux rigidus, right foot. 2. Hypertrophy of bone, right foot. POSTOPERATIVE DIAGNOSES: 1. Hallux rigidus, right foot. 2. Hypertrophy of bone, right foot. ANESTHESIA: IV general with local block, right foot. RETAIL WAREHOUSE SUPERVISOR: Atiya Mclean. 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 PROCEDURE PERFORMED: Cheilectomy, right 1st MTPJ. PROCEDURE IN DETAIL: The patient was brought to the operating room and placed on the table in the supine position. Anesthesia Department administered IV sedation after which a local block was given to the right foot using a total of 12 mL 1-1 mixture 2% lidocaine plain and 0.5% ropivacaine plain. The right leg and foot was then prepped and draped in the usual sterile manner and an Esmarch was used for hemostasis. Attention was initially directed to the dorsal aspect right 1st MPJ and a linear longitudinal incision was made approximately 1 cm medial to the extensor hallucis longus tendon directly over the scar from a previous surgery. The incision was about 6 cm in length, initially full-thickness through the dermis, then deepened through subcutaneous tissue using careful dissection and cautery as necessary for hemostasis. Once at the level of joint capsule and deep fascia, the incision was deepened to bone and soft tissues were reflected medially and laterally to expose the dorsal aspect of the right 1st MPJ. Bony hypertrophy and loose bony ossicles immediately noted within the surgical site once soft tissues were reflected and hand instrumentation used to resect the bony PATIENT NAME: OLVIN PATEL JR OPERATIVE REPORT DATE OF : 50 REPORT #: [id number] PHYSICIAN: ROD URBANO DPM PCP: RADHA LOZOYA PAC REPORT IS CONFIDENTIAL AND NOT TO BE RELEASED WITHOUT AUTHORIZATION [facility] [address], [place] [address] Draft hypertrophy. Once all of the loose bone fragments and bony hypertrophy had been debrided from the dorsal aspect of the joint, a remaining bump was noted to the dorsal/medial aspect of the joint. Soft tissues were reflected to this area and bone resected to this area as well. The surgical site was then irrigated and inspected for any additional loose bony fragments, which were then removed. The bone to the 1st metatarsal head and base of the proximal phalanx side of the joint was then smoothed with a rasp and the surgical site then irrigated again. A small amount of bone wax then applied to the area of raw bone and bony resection. The surgical site irrigated lightly and then deep fascia and joint capsule closed with 3-0 Vicryl. Subcutaneous tissue closed with 4-0 Vicryl and skin closed with 5-0 nylon suture. Dressings then applied consisting of Adaptic, Betadine-soaked gauze, dry gauze, Kerlix fluffs, Lexicon roll gauze, and Coban for mild compression. Prior to placement of the dressings, a postoperative injection was given using a total of 10 mL 9:1 mixture of 2% lidocaine plain and dexamethasone phosphate 4 mg/mL. INTRAOPERATIVE COMPLICATIONS: None. ESTIMATED BLOOD LOSS: Less than 5 mL. CRYSTAL Woodard/SOLEDAD /[id number] Copies: ~ PATIENT NAME: OLVIN PATEL JR OPERATIVE REPORT DATE OF : 50 REPORT #: [id number] PHYSICIAN: ROD URBANO DPM PCP: RADHA LOZOYA PAC REPORT IS CONFIDENTIAL AND NOT TO BE RELEASED WITHOUT AUTHORIZATION
[~2019-07-10 05:50] MED LIST: AMOX TR-K CLV1 EAC3 PO; ASPIR 8181 MG PO; ATORVASTATIN CA20 MG PO; AUGMENTIN 875-1 EACH PO; CHOLESTYRAMINE P4 GM PO; FINASTERIDE5 MG PO; HYDROMORPHONE HC2 MG PO; IMODIUM A-D2 M2 PO; LIALDA1.2 GM PO; MULTI VITAMIN1 EACH PO; NEXIUM20 MG PO; OXYBUTYNIN CHLO10 MG PO; TAMSULOSIN HCL0.4 MG PO; VITAMIN D-32000 UNIT PO
[2019-07-10] MEDS ORDERED: LIALDA1.2 GM PO (06:05)
[2019-07-10] MEDS ORDERED: ATORVASTATIN CA20 MG PO (06:06)
[2019-07-10] MEDS ORDERED: CHOLESTYRAMINE P4 GM PO (06:06)
[2019-07-10] MEDS ORDERED: FLOMAX0.4 MG PO (06:06)
[2019-07-10] MEDS ORDERED: OXYBUTYNIN CHLO10 MG PO (06:07)
--- NOTE | 2019-07-10 09:08 | NUR ---
07/10/19 0908 [address] 0805 PT ARRIVED IN PACU AWAKE WITH NO C/O'S. 0810 3 VIEW XRAY OF R FOOT TAKEN. 0815 DR AT BEDSIDE TALKING WITH PT. 0830 SITTING UP IN BED SIPPING ON WATER. 0840 DC INSTRUCTIONS GIVEN. ALL QUESTIONS ANSWERED.
--- NOTE | 2019-07-10 13:24 | NUR ---
CONNECTED WITH PT HE WAS READY FOR DC. SEEMED IN GOOD SPIRITS, EXTENDED A BLESSING AND WISHED WILL. HE THANKED ME AND WILL FOLLOW NEEDED
--- NOTE | 2019-07-11 15:57 | PATH ---
[facility] [place] [facility] [address] [facility] [place], [place] [address] Signed SPECIMEN(S): A GOUTY TOPHI SPECIMEN SOURCE: A. GOUTY TOPHI CLINICAL HISTORY: Rigidus hallux. 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 (see comment) COMMENT: Polarizable crystalline material is present. Clinical correlation with testing of fresh or alcohol fixed material may be helpful for definitive crystal characterization. JVR:cml:C2NR MICROSCOPIC EXAMINATION: Histologic sections of all submitted blocks are examined by light microscopy. These findings, together with the gross examination, support the pathologic diagnosis. GROSS DESCRIPTION: The specimen, labeled "CA," and designated on the requisition "gouty tophi," is received fresh and consists of a 0.4 x 0.3 x 0.3 cm white chalky soft tissue fragment. The specimen is entirely submitted in cassette (A1). FB (under the direct supervision of a pathologist) The Gross Description was prepared using a voice recognition system. The report was reviewed for accuracy; however, sound-alike word errors, addition and/or deletions may occur. If there is any question about this report, please contact Client Services. PERFORMING LABORATORY: The technical component was performed by [facility], [address] [place] [id number] ([employer] Sales Representative: Kelsea Mccall MD; CLIA# [id number]). [facility], [address] [place] [address], [place] [address] ([employer] Sales Representative: Peterson Sam M.D.). PATIENT NAME: OLVIN PATEL JR PATHOLOGY DATE OF : 50 REPORT #: [id number] PHYSICIAN: RANJIT PATHOLOGY PCP: RADHA LOZOYA PAC REPORT IS CONFIDENTIAL AND NOT TO BE RELEASED WITHOUT AUTHORIZATION [facility] [place] [facility] [address] [place] [id number] Signed Diagnostician: Peterson Sam MD Pathologist Electronically Signed 07/11/2019 Copies: ~ PATIENT NAME: OLVIN PATEL JR PATHOLOGY DATE OF : 50 REPORT #: [id number] PHYSICIAN: RANJIT PATHOLOGY PCP: RADHA LOZOYA PAC REPORT IS CONFIDENTIAL AND NOT TO BE RELEASED WITHOUT AUTHORIZATION
== END 2019-07-10 08:40 | disposition home or self-care (01) ==
LOC: DS 05:50 → OPS 05:50 → DS 06:45 → OPS 08:40
PROVIDERS: Podiatrist Foot Surgery
PROC: 0QBQ0ZZ Excision of Right Toe Phalanx, Open Approach (ICD-10-PCS; principal; 2019-07-10 06:45)
DX: M20.21 Hallux rigidus, right foot (principal); M89.371 Hypertrophy of bone, right ankle and foot; K85.90 Acute pancreatitis without necrosis or infection, unspecified; Z79.82 Long term (current) use of aspirin; Z79.899 Other long term (current) drug therapy; Z87.891 Personal history of nicotine dependence
CPT/HCPCS: 73630; J0690; J1100; J1885; J2250; J2405; J2704; J2795; J3010; J7121

== ENCOUNTER 2020-10-09 03:01 | Emergency (ER) | payer MEDICARE, OTHER ==
[~2020-10-09] VITALS: Ht 180.3 cm; Wt 97.5 kg
[~2020-10-09 03:01] MED LIST changes: +FLOMAX0.4 MG PO
--- OUTSIDE RECORDS SUMMARY | 2020-10-09 03:04 | XMS ---
PreManage Notification: OLVIN PATEL Security Histotechnologist Events No recent Security Events currently on file CRITERIA MET - History of Sepsis Dx CARE PROVIDERS There are no care providers on record at this time. Tyshawn has no Care Guidelines for this patient. Rachael VISIT COUNT (12 MO.) 1 ASHTYN Chi TOTAL 1 NOTE: Visits indicate total known visits. ED/UCC VISIT TRACKING (12 MO.) 10/09/2020 03:01 ASHTYN Hilario OR TYPE: Emergency COMPLAINT: - CANNOT PEE INPATIENT VISIT TRACKING (12 MO.) No inpatient visits to display in this time frame [email or web address]
[2020-10-09] MEDS ORDERED: WELLBUTRIN XL300 MG PO ×2 (03:52)
[2020-10-09] MEDS ORDERED: GABAPENTIN300 MG PO (03:53)
== END 2020-10-09 04:57 | disposition home or self-care (01) ==
LOC: ED 03:01
DX: R31.9 Hematuria, unspecified (principal); R33.9 Retention of urine, unspecified; Z87.891 Personal history of nicotine dependence; Z88.8 Allergy status to other drugs, medicaments and biological substances; Z88.1 Allergy status to other antibiotic agents; Z79.899 Other long term (current) drug therapy; Z79.82 Long term (current) use of aspirin
CPT/HCPCS: 81001; 99283

== ENCOUNTER 2024-07-30 16:30 | Emergency (ER) | payer MEDICARE, OTHER ==
[~2024-07-30 16:30] MED LIST changes: +GABAPENTIN300 MG PO; +WELLBUTRIN XL300 MG PO
[2024-07-30] MEDS ORDERED: MYRBETRIQ50 MG PO (16:48)
[2024-07-30] MEDS ORDERED: DIPHTH,PERTUSS(ACELL),TET VAC 0.5 ML SYRINGE IM ONE (17:00)
[2024-07-30 18:10] VITALS: BP 138/77
== END 2024-07-30 18:14 | disposition home or self-care (01) ==
LOC: ED 16:30
DX: S01.511A Laceration without foreign body of lip, initial encounter (principal); W22.8XXA Striking against or struck by other objects, initial encounter; Z23 Encounter for immunization; Z87.891 Personal history of nicotine dependence; Z88.1 Allergy status to other antibiotic agents; Z88.6 Allergy status to analgesic agent; Z79.82 Long term (current) use of aspirin; Z79.899 Other long term (current) drug therapy
CPT/HCPCS: 12011; 90471; 90715; 99282-25